=== PATIENT | female | born 1975 | race Caucasian/White ===

== ENCOUNTER 2018-12-03 18:11 | Inpatient (IN) | payer MEDICAID ==
[~2018-12-03] VITALS: Ht 165.1 cm; Wt 49.1 kg
[~2018-12-03 18:11] MED LIST changes: -CITA-145 PO; -CYCL10TA29 PO; -PROP60CA22 PO; -TRAZ100T31 PO
--- NOTE | 2018-12-03 18:20 | ER Report ---
History and Physical Time Seen By MD: 18:16 (CHANTE PAGE MD) HPI/ROS CHIEF COMPLAINT: left spontaneous pneumothorax HISTORY OF PRESENT ILLNESS: This is a 43 year old female. She was seen in the outpatient office today because of chest, neck and shoulder pain on the left. chest x-ray obtained as outpatient. Found to have a pneumothorax and was sent to the ER. She has a history of a small spontaneous pneumothorax in the past, treated conservatively with observing and it resolved. Onset of pain earlier today, sudden onset. Had some nausea and vomiting and coughing which may have triggered the pain. She smokes about 1/2 pack daily. No fever or chills. (CHANTE PAGE MD) Allergies: Coded Allergies: topiramate (Verified Allergy, Intermediate, L SIDE OF BODY GOES NUMB, 12/03/18) Sulfa (Sulfonamide Antibiotics) (Verified Allergy, Mild, RASH, 12/03/18) Home Meds Reported Medications Trazodone Hcl (TRAZODONE HCL) 100 Mg Tablet, 100 MG PO QHS, TAB 12/03/18 Citalopram Hydrobromide (CITALOPRAM HBR) 20 Mg Tablet, 40 MG PO QDAY, #5 TAB 12/03/18 Propranolol Hcl (PROPRANOLOL HCL) 60 Mg Cap.sa.24h, 60 MG PO QDAY 12/03/18 Cyclobenzaprine Hcl (CYCLOBENZAPRINE HCL) 10 Mg Tablet, 10 MG PO BID PRN for SPASMS, #9 TAB 12/03/18 Discontinued Reported Medications Oxycodone/Acetaminophen (OXYCODONE/ACETAMINOPHEN 5MG/325 MG) 5 Mg/325 Mg Tab, 1 - 2 TAB PO Q4H PRN, #20 TAKE ONE OR TWO PERCOCETS EVERY 4 HOURS NEEDED FOR PAIN 03/11/12 Ibuprofen (Motrin) 800 Mg Tab, 800 MG PO Q8H, #30 TAKE ONE MOTRIN 800MG THREE TIMES A DAY. 03/11/12 Reviewed Nurses Notes: Yes (CHANTE PAGE MD) Hx Substance Use Disorder: No Hx Alcohol Use: No (CHANTE PAGE MD) Constitutional Vital Sign - Last 24 Hours 12/03/18 18:20 Temp 97.8 Pulse 108 Resp 16 B/P (MAP) 142/109 Pulse Ox 93 O2 Delivery Room Air ([facility] K[facility]UR [facility]) Physical Exam General Appearance: The patient is alert. No acute distress, but is anxious/nervous. Eyes: Pupils are equal, round. No pallor, injection or icterus. ENT: Mucous membranes are moist. Normal oral mucosa. Posterior oropharynx is normal. Trachea midline. Respiratory: Lungs are clear to auscultation. She does have some pain with deep breaths. No retractions or accessory muscle use and no distress. Cardiovascular: Regular rate and rhythm. No murmurs, gallops or rubs. Gastrointestinal: Abdomen is soft and non tender. Nondistended. Normal active bowel sounds. No costovertebral angle tenderness with percussion. Neurological: Alert and oriented x3. Skin: Warm and dry. No skin lesions or rashes on chest wall. Musculoskeletal: Some tenderness of the left chest. No tenderness in palpation of the cervical, thoracic and lumbar spine. DIFFERENTIAL DIAGNOSIS: After history and physical exam, differential diagnosis was considered for spontaneous pneumothorax (CHANTE PAGE MD) Medical Decision Making Data Points Result Diagram: 12/03/184 12/03/18 1824 Laboratory Hematology Test 12/03/18 18:24 Red Blood Count 5.05 M/uL (4.17-5.56) Mean Corpuscular Volume 99.4 fL (80.0-96.0) Mean Corpuscular Hemoglobin 34.6 pg (26.0-33.0) Mean Corpuscular Hemoglobin Concent 34.8 g/dL (32.0-36.0) Red Cell Distribution Width 12.9 % (11.5-14.5) Mean Platelet Volume 8.5 fL (7.2-11.1) Neutrophils (%) (Auto) 70.5 % (39.4-72.5) Lymphocytes (%) (Auto) 20.7 % (17.6-49.6) Monocytes (%) (Auto) 6.6 % (4.1-12.4) Eosinophils (%) (Auto) 1.5 % (0.4-6.7) Basophils (%) (Auto) 0.7 % (0.3-1.4) Nucleated RBC Relative Count (auto) 0.1 /100WBC Neutrophils # (Auto) 9.5 K/uL (2.0-7.4) Lymphocytes # (Auto) 2.8 K/uL (1.3-3.6) Monocytes # (Auto) 0.9 K/uL (0.3-1.0) Eosinophils # (Auto) 0.2 K/uL (0.0-0.5) Basophils # (Auto) 0.1 K/uL (0.0-0.1) Nucleated RBC Absolute Count (auto) 0.02 K/uL Prothrombin Time 13.9 seconds (12.0-14.4) Prothromb Time International Ratio 1.06 Activated Partial Thromboplast Time 28 seconds (23-35) Sodium Level 136 mmol/L (137-145) Potassium Level 3.8 mmol/L (3.5-5.0) Chloride Level 104 mmol/L (98-107) Carbon Dioxide Level 24 mmol/L (22-31) Blood Urea Nitrogen 12 mg/dl (7-18) Creatinine 0.80 mg/dl (0.52-1.04) Glomerular Filtration Rate Calc > 60.0 Random Glucose 114 mg/dl (75-110) Calcium Level 9.7 mg/dl (8.4-10.2) Total Bilirubin 0.7 mg/dl (0.2-1.3) Aspartate Amino Transf (AST/SGOT) 20 U/L (0-35) Alanine Aminotransferase (ALT/SGPT) 14 U/L (0-56) Alkaline Phosphatase 66 U/L (0-126) Total Protein 8.5 g/dl (6.3-8.2) Albumin 4.5 g/dl (3.5-5.0) Human Chorionic Gonadotropin, Qual Negative (NEGATIVE) Chemistry Test 12/03/18 18:24 White Blood Count 13.4 k/uL (4.5-11.0) Red Blood Count 5.05 M/uL (4.17-5.56) Hemoglobin 17.5 g/dL (12.0-16.0) Hematocrit 50.2 % (34.0-47.0) Mean Corpuscular Volume 99.4 fL (80.0-96.0) Mean Corpuscular Hemoglobin 34.6 pg (26.0-33.0) Mean Corpuscular Hemoglobin Concent 34.8 g/dL (32.0-36.0) Red Cell Distribution Width 12.9 % (11.5-14.5) Platelet Count 230 K/uL (150-450) Mean Platelet Volume 8.5 fL (7.2-11.1) Neutrophils (%) (Auto) 70.5 % (39.4-72.5) Lymphocytes (%) (Auto) 20.7 % (17.6-49.6) Monocytes (%) (Auto) 6.6 % (4.1-12.4) Eosinophils (%) (Auto) 1.5 % (0.4-6.7) Basophils (%) (Auto) 0.7 % (0.3-1.4) Nucleated RBC Relative Count (auto) 0.1 /100WBC Neutrophils # (Auto) 9.5 K/uL (2.0-7.4) Lymphocytes # (Auto) 2.8 K/uL (1.3-3.6) Monocytes # (Auto) 0.9 K/uL (0.3-1.0) Eosinophils # (Auto) 0.2 K/uL (0.0-0.5) Basophils # (Auto) 0.1 K/uL (0.0-0.1) Nucleated RBC Absolute Count (auto) 0.02 K/uL Prothrombin Time 13.9 seconds (12.0-14.4) Prothromb Time International Ratio 1.06 Activated Partial Thromboplast Time 28 seconds (23-35) Glomerular Filtration Rate Calc > 60.0 Calcium Level 9.7 mg/dl (8.4-10.2) Total Bilirubin 0.7 mg/dl (0.2-1.3) Aspartate Amino Transf (AST/SGOT) 20 U/L (0-35) Alanine Aminotransferase (ALT/SGPT) 14 U/L (0-56) Alkaline Phosphatase 66 U/L (0-126) Total Protein 8.5 g/dl (6.3-8.2) Albumin 4.5 g/dl (3.5-5.0) Human Chorionic Gonadotropin, Qual Negative (NEGATIVE) Coagulation Test 12/03/18 18:24 Prothrombin Time 13.9 seconds Prothromb Time International Ratio 1.06 Activated Partial Thromboplast Time 28 seconds (EMMA KAURP-) EKG/Imaging Imaging Exam type: CHEST PA AND LAT History: Chest pain Comparison: August 18, 2015. Findings: There is an approximate 30-40% left-sided pneumothorax with a mild vdkc-ar-dfzro mediastinal shift. Small air-fluid level is noted along the inferior aspect of the left thorax consistent with a hydropneumothorax. There are multiple small blebs identified in the pulmonary apices bilaterally. Increased AP diameter the chest noted consistent with hyperinflation. The cardiac silhouette remains stable. IMPRESSION: 1. Approximate 30-40% left-sided pneumothorax with slight jwdk-gy-qvzjc mediastinal shift Biapical pleural blebs The patient was immediately notified on her cell phone to return to the emergency room. Report Dictated By: Emilia Arias MD at 12/03/2018 5:58 PM (CHANTE PAGE MD) ED Course/Re-evaluation ED Course Patient admitted and discussed regarding her pneumothorax, need for chest tube, as well as sedation for the procedure. Explained risks and benefits and the patient agreed to this. I also called and spoke briefly with our general surgeon, Dr. Mckeon. I assisted our nurse practitioner in the ER with chest tube placement. See procedure note below. Sedation with 50 g of fentanyl and a total of 100 mg of ketamine during the procedure. Also given Zofran for nausea and a liter of normal saline at a rate of one 25 cc per hour. Procedure: Procedural sedation. A pre-sedation evaluation was completed on the patient. Patient is an appropriate candidate for procedural sedation. The risks of the sedation were discussed with the patient. A time out was completed. The patient was reevaluated immediately prior to initiation of sedation. The patient was sedated with ketamine and fentanyl. The patient was monitored with continuous pulse oximetry and teletypesetter monitor. There were no complications and no significant hypoxemia. I remained at the bedside for the sedation. The total time I spent in the procedural sedation was 20 minutes. Post sedation evaluation: Patient was alert and cooperative, hemodynamically stable with appropriate respiratory status, temperature and pain control without ongoing nausea and vomiting. Decision to Disposition Date: Dec 03, 2018 Decision to Disposition Time: 20:11 (CHANTE PAGE MD) ED Course 12/03/2018 7:40:53 pm Procedure: Chest tube placement. The indication for the procedure was a pneumothorax. A timeout was observed. The patient was prepped in a sterile fashion. The patient was anesthetized with 1% lidocaine. After blunt dissection a 20 [place] chest tube was placed in the 5th intercostal space on the left side. The tube was sutured in place and dressed. Post placement chest x-ray demonstrated the tube to be in the appropriate position. Following placement of the tube the patient's condition was improved. The patient tolerated the procedure well there were no compli cations. The procedure was performed by myself with Dr. Page. (EMMA KAUR-ZOHRA) Depart Departure Latest Vital Signs Vital Signs Date Time Temp Pulse Resp B/P (MAP) Pulse Ox O2 Delivery O2 Flow Rate FiO2 12/03/18 18:20 97.8 108 16 142/109 93 Room Air (EMMA KAUR-ZHORA) Impression: Primary Impression: Spontaneous tension pneumothorax Additional Impression: Emphysematous bleb of lung Condition: Improved Disposition: Admitted from ER Referrals: HOLLY PALM PA-C (PCP) Problem Qualifiers CHANTE PAGE MD Dec 03, 2018 18:20 EMMA KAUR Dec 03, 2018 19:43
[2018-12-03] MEDS ORDERED: ONDANSETRON 4 MG/2 ML VIAL IVP ONE (18:25)
[2018-12-03] MEDS ORDERED: NS(*) 0.9% 1000 ML BAG 1,000 ML IV ONE (18:25)
[2018-12-03] MEDS ORDERED: fentaNYL CITR 100 MCG/2 ML AMP IVP ONE (18:25)
[2018-12-03] MEDS ORDERED: KETAMINE HCL-NS 50 MG/5 ML SYR IVP ONE (18:25)
[2018-12-03 18:43] LABS: INR 1.06; PLATELET COUNT, AUTOMATED 230 K/uL (150-450)
[2018-12-03] MEDS ORDERED: IOPAMIDOL 76% 100 ML INFUS BTL 100 ML ONE (18:43)
[2018-12-03] MEDS ORDERED: KETAMINE HCL-NS 50 MG/5 ML SYR ONE (19:02)
[2018-12-03] MEDS ORDERED: MORPHINE 4 MG/ML SDV IVP ONE (20:20)
--- NOTE | 2018-12-03 20:37 | RADIOLOGY IMAGING REPORT ---
FACILITY: [facility] PATIENT NAME: Leidy Momin : 1975 MR: [id number] V: [id number] EXAM DATE: ORDERING PHYSICIAN: CHANTE DOOLEY TECHNOLOGIST: Location: [facility] [place] Patient: Leidy Momin : 1975 Visit/Account:[id number] Date of Sevice: 12/03/2018 Examination: CT chest with contrast COMPARISON: Chest x-ray same day. HISTORY: Left pneumothorax. Chest tube placement. PROCEDURE: Multiplanar contrast-enhanced imaging of the chest with 75 mL intravenous Isovue 370. One of the following dose optimization techniques was utilized in the performance of this exam: Automated exposure control; adjustment of the mA and/or kV according to the patient's size; or use of an itera tive reconstruction technique. Specific details can be referenced in the facility's radiology CT ex am operational policy. FINDINGS: Mediastinum: Cardiac chamber size is normal. No pericardial effusion. No thoracic aortic aneurysm or dissection. Main pulmonary artery size is normal. Lymph nodes: Negative. Lungs and pleura: A left chest tube extends through the left lateral sixth costophrenic space, tracks along the left major fissure, and terminates at the left lung apex. Small (less than 10%) residual a nterior and subpulmonic pneumothorax. No mediastinal shift. Pulmonary hyperexpansion and apical predominant emphysema with numerous apical blebs. No consolidatio n. Scattered pulmonary micronodules measuring up to 5 mm. No right-sided pneumothorax. No pulmonary e kieran or pleural effusion. Airways: Negative. Diaphragm: Intact. Upper abdomen: No acute findings. Osseous structures: Minimal degenerative change. No acute findings. IMPRESSION: 1. Left chest tube placement with a less than 10% residual pneumothorax. 2. Pulmonary hyperexpansion, emphysema, and biapical blebs. 3. Pulmonary micronodules measuring up to 5 mm. Follow-up as detailed below. Results were discussed with CHANTE DOOLEY at 12/03/2018 8:32 PM. [employer] SOCIET[employer] FOLLOW-UP GUIDELINES FOR NEWLY DETECTED INCIDENTAL NODULES IN PERSONS 35 YEARS OF AGE OR OLDER. *These recommendations do NOT apply to lung cancer screening, patients with immunosuppression or edith ents with a known primary malignancy. MULTIPLE SOLID NODULES If nodule size is < 6 mm: * Low risk patient - No routine follow-up. * High risk patient - Optional CT at 12 months. Jhon H, Omari DP, Maryann HANKINS, et al. Guidelines for Management of Incidental Pulmonary Nodules Dete cted on CT Images: From the Fleischner Society 2017. Radiology. [facility] Report Dictated By: Alfredito Mccall MD at 12/03/2018 8:21 PM Report E-Signed By: Alfredito Mccall MD at 12/03/2018 8:33 PM WSN:[id number]
[2018-12-03 21:18] VITALS: BP 129/85
[2018-12-03] MEDS ORDERED: ONDANSETRON 4 MG ODT TABDP SL PRN (21:35)
[2018-12-03] MEDS ORDERED: CITA-145 PO (21:46)
[2018-12-03] MEDS ORDERED: PROP60CA22 PO (21:46)
[2018-12-03] MEDS ORDERED: TRAZ100T31 PO (21:46)
[2018-12-03] MEDS ORDERED: CYCL10TA29 PO (21:46)
[2018-12-03] MEDS ORDERED: FLUSH 10 ML SYR IVP PRN (22:45)
[2018-12-04 03:43] VITALS: BP 113/82
[2018-12-04 06:56] VITALS: BP 116/68
--- NOTE | 2018-12-04 07:02 | RADIOLOGY IMAGING REPORT ---
FACILITY: [facility] - [place] PATIENT NAME: Leidy Momin : 1975 MR: [id number] V: [id number] EXAM DATE: ORDERING PHYSICIAN: YAQUELIN TAFOYA TECHNOLOGIST: Location: [facility] [place] Patient: Leidy Momin : 1975 Visit/Account:[id number] Date of Sevice: 12/04/2018 EXAMINATION: Chest radiograph HISTORY: Chest tube COMPARISON: December 03, 2018 FINDINGS: Frontal view obtained. Lines/tubes: New left chest tube. Cardiomediastinal silhouette: Normal. Lungs/pleura: No apparent residual pneumothorax. Unchanged biapical pleural-parenchymal scarring. Ot herwise clear lungs. Bony structures/chest wall: No significant abnormality. IMPRESSION: New left chest tube compared to prior chest radiograph. No radiographic apparent left pneumothorax. Unchanged biapical pleural-parenchymal scarring. Report Dictated By: Derrick Castellon MD at 12/04/2018 6:55 AM Report E-Signed By: Derrick Castellon MD at 12/04/2018 6:58 AM WSN:[id number]
[2018-12-04] MEDS ORDERED: FLUSH 10 ML SYR IVP PRN (07:50)
--- NOTE | 2018-12-04 09:34 | Gen Surgery History & Physical ---
History of Present Illness Chief Complaint Left shoulder pain, shortness of breath History of Present Illness 43-year-old female, long-term smoker, presents to her PCM at [facility], she saw Dr. Lee, with a complaint of left shoulder pain and a migraine with posterior neck pain. He obtained a PA lateral chest x-ray which re vealed a pneumothorax. Because of her migraine she had been experiencing nausea and vomiting. She has smoked since she was 18 and for most of that time she smoked a pack per day but most recently she's been trying to cut back and believe she smokes about a half a pack per day currently. She had a spontaneous pneumothorax about 3 years ago which was managed with the chest tube and then resolved with conservative management. She has no other complaints today. History Problems: (1) Chronic bullous emphysema Status: Chronic (2) Depression Status: Chronic (3) Cigarette smoker Status: Chronic (4) Migraine Status: Chronic Home Meds Reported Medications Trazodone Hcl (TRAZODONE HCL) 100 Mg Tablet, 100 MG PO QHS, TAB 12/03/18 Citalopram Hydrobromide (CITALOPRAM HBR) 20 Mg Tablet, 40 MG PO QDAY, #5 TAB 12/03/18 Propranolol Hcl (PROPRANOLOL HCL) 60 Mg Cap.sa.24h, 60 MG PO QDAY 12/03/18 Cyclobenzaprine Hcl (CYCLOBENZAPRINE HCL) 10 Mg Tablet, 10 MG PO BID PRN for SPASMS, #9 TAB 12/03/18 Discontinued Reported Medications Oxycodone/Acetaminophen (OXYCODONE/ACETAMINOPHEN 5MG/325 MG) 5 Mg/325 Mg Tab, 1 - 2 TAB PO Q4H PRN, #20 TAKE ONE OR TWO PERCOCETS EVERY 4 HOURS NEEDED FOR PAIN 03/11/12 Ibuprofen (Motrin) 800 Mg Tab, 800 MG PO Q8H, #30 TAKE ONE MOTRIN 800MG THREE TIMES A DAY. 03/11/12 Allergies: Coded Allergies: topiramate (Verified Allergy, Intermediate, L SIDE OF BODY GOES NUMB, 12/03/18) Sulfa (Sulfonamide Antibiotics) (Verified Allergy, Mild, RASH, 12/03/18) Review of Systems All Systems Reviewed/Normal: Yes, Except as Noted Respiratory: Shortness of Breath Musculoskeletal: Pain Exam General Appearance: Alert, Awake, No Acute Distress, Afebrile Neuro: No Gross deficits Eyes: PERRLA Respiratory: Clear to Auscultation, Other (Left chest tube in place and in good position. No air leak. Tidaling normally.) GI: Abd Soft and Non-Tender Extremities: Warm, Perfused Psych: Alert & Oriented X3, Appropriate Mood & Affect Medical Decision Making Data Points Result Diagram: 12/03/18182312/03/181823 Assessment and Plan Problems: (1) Spontaneous tension pneumothorax Status: Acute Assessment & Plan: 12/04/18: Chest tube placed last night in the ER with nearly complete resolution of the pneumothorax and on this morning's chest x-ray, there is no evidence of pneumothorax and there is no air leak on the Pleur-evac. She has essentially been on waterseal all night because suction was turned on but very low such that the Pleur-evac was not even bubbling. Chest tube removed this morning without problems and an airtight dressing placed. We'll get a chest x- ray this afternoon and if it looks good then she can go home. Discussed smoking cessation with her and she is willing to make an attempt at smoking cessation. Consult placed for smoking cessation and then she should follow up with her primary care provider for continued efforts at smoking cessation. She is at high risk for another pneumothorax given the appearance of her bullae on chest CT. There is not just apical bullae but there are bullae throughout the upper long alberto. These results of been discussed with her and it seems that because of this she is motivated to try and stop smoking. (2) Emphysematous bleb of lung Status: Acute (3) Chronic bullous emphysema Status: Chronic (4) Cigarette smoker Status: Chronic Condition Stable. Time Spent: < 30 min Venous Thromboembolism VTE Risk Physician Assess for VTE Risk: Yes Patient's VTE Risk: Low VTE Diagnostic Test 2 Days Prior to Admit: No Antithrombotics Is Pt On Any Antithrombotics?: No YAQUELIN TAFOYA MD Dec 04, 2018 09:34
[2018-12-04] MEDS: FAMOTIDINE 20 MG TAB PO SCH ×2 (09:40→20:22)
[2018-12-04] MEDS: PROPRANOLOL HCL LA 60 MG CAPCR PO SCH (09:40)
[2018-12-04] MEDS: DOCUSATE SODIUM 100 MG CAP PO SCH ×2 (09:41→20:22)
[2018-12-04] MEDS: ENOXAPARIN 40 MG/0.4ML SYR SC SCH (09:41)
[2018-12-04] MEDS: CITALOPRAM HYDROBROM 20 MG TAB PO SCH (09:41)
[2018-12-04 11:46] VITALS: BP 125/80
[2018-12-04 12:14] VITALS: Ht 165.1 cm; Wt 49.1 kg
--- NOTE | 2018-12-04 13:48 | RADIOLOGY IMAGING REPORT ---
FACILITY: [facility] PATIENT NAME: Leidy Momin : 1975 MR: [id number] V: [id number] EXAM DATE: ORDERING PHYSICIAN: YAQUELIN TAFOYA TECHNOLOGIST: Location: [facility] Patient: Leidy Momin : 1975 Visit/Account:[id number] Date of Sevice: 12/04/2018 CHEST SINGLE AP History: Left PTX, chest tube removed FINDINGS: Comparison studies: Comparison radiograph earlier today at 6:33 AM Tubes and Lines: Interval removal of left chest tube Lungs and pleura: Interval development of a moderate left pneumothorax. Visceral pleura is 2.5 cm from the parietal wall lung apex. Lungs appear hyperinflated. Mediastinum: normal. Cardiac silhouette: normal . Osseous structures: Unremarkable for age . IMPRESSION: Developing left pneumothorax status post left chest tube removal. I would estimate approximately 3 0% volume loss. Probable underlying COPD Results were called to YAQUELIN TAFOYA at 12/04/2018 1:35 PM. Report Dictated By: Lc Jimenez MD at 12/04/2018 1:35 PM Report E-Signed By: Lc Jimenez MD at 12/04/2018 1:43 PM WSN:[email or web address]
[2018-12-04 15:27] VITALS: BP 134/96
--- NOTE | 2018-12-04 17:46 | Procedure Note ---
Chest Tube Procedure Note Reason for Chest Tube PTX Consent Signed: Yes Chest Tube Location: Left Lung Complications: None Anesthesia Used: 1% Lidocaine CC's of Anesthesia: 5 Chest Tube Size Fr.: 14 Chest Tube Suction: Pleura-Vac Chest Tube Secured: Occlusive Dressing Post Procedure Xray Ordered: Yes YAQUELIN TAFOYA MD Dec 04, 2018 17:46
--- NOTE | 2018-12-04 17:47 | Miscellaneous Provider Note ---
Miscellaneous Provider Note Note Post pull CXR with recurrent 30% PTX. Discussed results with patient and recommended placement of a new chest tube. Pt is agreeable with this. Will place 14F Victor [place] PTX catheter at bedside. YAQUELIN TAFOYA MD Dec 04, 2018 17:47
[2018-12-04] MEDS: MORPHINE 4 MG/ML SDV IVP PRN (17:54)
[2018-12-04 19:41] VITALS: BP 112/70
[2018-12-04] MEDS: traZODone HCL 50 MG TAB PO SCH (20:22)
--- NOTE | 2018-12-04 21:25 | RADIOLOGY IMAGING REPORT ---
FACILITY: [facility] - [place] PATIENT NAME: Leidy Momin : 1975 MR: [id number] V: [id number] EXAM DATE: ORDERING PHYSICIAN: YAQUELIN TAFOYA TECHNOLOGIST: Location: [facility] Patient: Leidy Momin : 1975 Visit/Account:[id number] Date of Sevice: 12/04/2018 Portable chest: Indication: Left pneumothorax. Technique: A single frontal film was obtained. Comparison: A prior study from earlier the same day at 1250 hours. Lines and tubes: A percutaneous catheter is now present in the left pleural space. Skeletal and soft tissue structures: Intact and unchanged. Heart and mediastinum: Within normal limits. Lung alberto: Well-expanded. No focal parenchymal opacities. Pleural spaces: There is minimal residual pneumothorax at the left apex. There is no evidence of effu mary. Impression: Left pleural space catheter in place. Minimal residual left apical pneumothorax. Report Dictated By: Yonny Vergara MD at 12/04/2018 9:17 PM Report E-Signed By: Yonny Vergara MD at 12/04/2018 9:20 PM WSN:[id number]
--- NOTE | 2018-12-05 06:09 | RADIOLOGY IMAGING REPORT ---
FACILITY: [facility] PATIENT NAME: Leidy Momin : 1975 MR: [id number] V: [id number] EXAM DATE: ORDERING PHYSICIAN: YAQUELIN TAFOYA TECHNOLOGIST: Location[place] [facility] [place] Patient: Leidy Momin : 1975 Visit/Account:[id number] Date of Sevice: 12/05/2018 EXAMINATION: Chest radiograph HISTORY: Recurrent left pneumothorax COMPARISON: December 04, 2018 FINDINGS: The cardiac silhouette is normal in size. Unchanged left pleural catheter. Trace left apical pneumoth orax is unchanged. Biapical pleural-parenchymal scarring as before. Otherwise clear lungs. No osseous abnormality. IMPRESSION: Trace unchanged left apical pneumothorax. Unchanged left pleural catheter. Report Dictated By: Derrick Castellon MD at 12/05/2018 6:03 AM Report E-Signed By: Derrick Castellon MD at 12/05/2018 6:05 AM WSN:[id number]
[2018-12-05 07:04] VITALS: BP 107/91
--- NOTE | 2018-12-05 07:31 | General Surgery Progress Note ---
Subjective Progress Notes Subjective No complaints this morning. No pain. Physical Exam Vital Signs Date Time Temp Pulse Resp B/P (MAP) Pulse Ox O2 Delivery O2 Flow Rate FiO2 12/05/18 07:04 98.1 71 16 107/91 (96) 90 Nasal Cannula 0.5 12/03/18 21:49 93.0 Intake and Output 12/05/18 07:00 Intake Total 480 ml Output Total 255 ml Balance 225 ml Intake Oral 480 ml Output Urine Total 250 ml Chest Tube Drainage Total 5 ml # Voids 2 General Appearance: Alert, Awake, No Acute Distress, Afebrile Cardiovascular: Regular Rate and Rhythm Respiratory: Clear to Auscultation GI: Soft and Non-Tender Extremities: Warm, Perfused Result Diagram: 12/03/18182312/03/181823 Assessment and Plan Problems: (1) Spontaneous tension pneumothorax Status: Acute Assessment & Plan: 12/04/18: Chest tube placed last night in the ER with nearly complete resolution of the pneumothorax and on this morning's chest x-ray, there is no evidence of pneumothorax and there is no air leak on the Pleur-evac. She has essentially been on waterseal all night because suction was turned on but very low such that the Pleur-evac was not even bubbling. Chest tube removed this morning without problems and an airtight dressing placed. We'll get a chest x- ray this afternoon and if it looks good then she can go home. Discussed smoking cessation with her and she is willing to make an attempt at smoking cessation. Consult placed for smoking cessation and then she should follow up with her primary care provider for continued efforts at smoking cessation. She is at high risk for another pneumothorax given the appearance of her bullae on chest CT. There is not just apical bullae but there are bullae throughout the upper long alberto. These results of been discussed with her and it seems that because of this she is motivated to try and stop smoking. 12/05/18: Failed chest tube removal yesterday with reaccumulation of left PTX. Victor Hugo PTX catheter placed yesterday evening with near total resolution of PTX. No air leak this morning. Will connect catheter to heimlich valve and check CXR later today. If she does well with this then will clamp chest tube later today and will get another CXR with the tube clamped. (2) Emphysematous bleb of lung Status: Chronic (3) Chronic bullous emphysema Status: Chronic (4) Cigarette smoker Status: Chronic Condition Stable. Time Spent: < 30 min Exam Sepsis Risk: No Definite Risk YAQUELIN TAFOYA MD Dec 05, 2018 07:31
--- NOTE | 2018-12-05 07:36 | NUR ---
removed suction and placed flutter valve to site. Addendum: 12/05/18 at 0737 by CRISS PERALTA RN Amended: Links added. Addendum: 12/05/18 at 0739 by CRISS PERALTA RN chest tube to heimlich valve. to recheck q2 hours for securement.
[2018-12-05] MEDS: ENOXAPARIN 40 MG/0.4ML SYR SC SCH (09:05)
[2018-12-05] MEDS: FAMOTIDINE 20 MG TAB PO SCH ×2 (09:05→20:38)
[2018-12-05] MEDS: CITALOPRAM HYDROBROM 20 MG TAB PO SCH (09:06)
[2018-12-05] MEDS: PROPRANOLOL HCL LA 60 MG CAPCR PO SCH (09:06)
[2018-12-05] MEDS: DOCUSATE SODIUM 100 MG CAP PO SCH ×2 (09:06→20:39)
[2018-12-05 09:07] VITALS: BP 122/79
[2018-12-05] MEDS ORDERED: KETAMINE HCL-NS 50 MG/5 ML SYR IVP ONE (10:40)
[2018-12-05 11:17] VITALS: BP 94/71
--- NOTE | 2018-12-05 11:39 | RADIOLOGY IMAGING REPORT ---
FACILITY: [facility] PATIENT NAME: Leidy Momin : 1975 MR: [id number] V: [id number] EXAM DATE: ORDERING PHYSICIAN: YAQUELIN TAFOYA TECHNOLOGIST: Location: [facility] Patient: Leidy Momin : 1975 Visit/Account:[id number] Date of Sevice: 12/05/2018 Exam type: CHEST SINGLE AP History: Left PTX, tube connected to heimlich valve Comparison: December 05, 2018 at 5:45 AM. Findings: The left pleural catheter remains unchanged and projects over the lateral aspect left upper thorax. There is been a minimal increase in the tiny left apical pneumothorax with distance between the left apical pleural margin in the upper chest wall of 7 mm previously 4 mm. Biapical pleural blebs again seen. No evidence of pulmonary consolidation or mediastinal shift. The cardiac silhouette remains n ormal IMPRESSION: 1. Left pleural catheter remains unchanged Minimal increase in the tiny left apical pneumothorax with no mediastinal shift Biapical pleural blebs again seen Report Dictated By: Emilia Arias MD at 12/05/2018 11:33 AM Report E-Signed By: Emilia Arias MD at 12/05/2018 11:35 AM WSN:[email or web address]
--- NOTE | 2018-12-05 12:47 | NUR ---
chest tube was clamped by will monitor for s/s of respiratory distress. Addendum: 12/05/18 at 1248 by CRISS PERALTA RN Amended: Links added.
[2018-12-05 16:02] VITALS: BP 115/71
--- NOTE | 2018-12-05 17:00 | NUR ---
unclamped chest tube, connected to suction to reinflate lung, and replaced with valve. pt will continue with open valve through night. Addendum: 12/05/18 at 1734 by CRISS PERALTA RN Amended: Links added.
--- NOTE | 2018-12-05 17:01 | RADIOLOGY IMAGING REPORT ---
FACILITY: [facility] PATIENT NAME: Leidy Momin : 1975 MR: [id number] V: [id number] EXAM DATE: ORDERING PHYSICIAN: YAQUELIN TAFOYA TECHNOLOGIST: Location: [facility] Patient: Leidy Momin : 1975 Visit/Account:[id number] Date of Sevice: 12/05/2018 Technique: CHEST SINGLE AP HISTORY: Left PTX, chest drain clamped Comparison studies: Chest radiograph 12/05/2018 FINDINGS: There is a left-sided chest tube. Noted is a moderate to large left-sided pneumothorax. A pical pleural thickening is again noted within the right lung. The cardiac silhouette is on remarkab le. IMPRESSION: 1. Interval worsening of the left-sided pneumothorax now measuring moderate to large in size status post chest tube clamping. Results were called to Dr. YAQUELIN TAFOYA at 12/05/2018 4:55 PM. Report Dictated By: Valeriano Goff DO at 12/05/2018 4:49 PM Report E-Signed By: Valeriano Goff DO at 12/05/2018 4:55 PM WSN:[id number]
[2018-12-05] MEDS: traZODone HCL 50 MG TAB PO SCH (20:39)
[2018-12-05 20:50] VITALS: BP 125/85
[2018-12-06] VITALS (7 sets, daily range): BP systolic 114–141; BP diastolic 66–93
--- NOTE | 2018-12-06 06:45 | RADIOLOGY IMAGING REPORT ---
FACILITY: [facility] [place] PATIENT NAME: Leidy Momin : 1975 MR: [id number] V: [id number] EXAM DATE: ORDERING PHYSICIAN: YAQUELIN TAFOYA TECHNOLOGIST: Location: [facility] Patient: Leidy Momin : 1975 Visit/Account:[id number] Date of Sevice: 12/06/2018 EXAMINATION: Chest radiograph HISTORY: Left pneumothorax COMPARISON: December 05, 2018 FINDINGS: Unchanged left pleural catheter. Small left upper chest pneumothorax is present and has dec reased in size. Unchanged biapical scarring. No acute osseous abnormality. IMPRESSION: Small left pneumothorax has decreased in size. Unchanged left pleural catheter. Report Dictated By: Derrick Castellon MD at 12/06/2018 6:39 AM Report E-Signed By: Derrick Castellon MD at 12/06/2018 6:41 AM WSN:[id number]
--- NOTE | 2018-12-06 07:40 | NUR ---
clamped chest tube. valve in place. will monitor for s/s respiratory distress. Addendum: 12/06/18 at 0804 by CRISS PERALTA RN Amended: Links added.
--- NOTE | 2018-12-06 07:46 | General Surgery Progress Note ---
Subjective Progress Notes Subjective No complaints this morning. Physical Exam Vital Signs Date Time Temp Pulse Resp B/P (MAP) Pulse Ox O2 Delivery O2 Flow Rate FiO2 12/06/18 03:44 Nasal Cannula 0.5 12/06/18 01:40 68 16 96 12/05/18 20:50 98.4 12/03/18 21:49 93.0 Intake and Output 12/06/18 07:00 Intake Total 960 ml Output Total 6 ml Balance 954 ml Intake Oral 960 ml Chest Tube Drainage Total 6 ml # Voids 4 General Appearance: Alert, Awake, No Acute Distress, Afebrile Cardiovascular: Regular Rate and Rhythm Respiratory: Clear to Auscultation Extremities: Warm, Perfused Result Diagram: 12/03/18182312/03/181823 Assessment and Plan Problems: (1) Spontaneous tension pneumothorax Status: Acute Assessment & Plan: 12/04/18: Chest tube placed last night in the ER with nearly complete resolution of the pneumothorax and on this morning's chest x-ray, there is no evidence of pneumothorax and there is no air leak on the Pleur-evac. She has essentially been on waterseal all night because suction was turned on but very low such that the Pleur-evac was not even bubbling. Chest tube removed this morning without problems and an airtight dressing placed. We'll get a chest x- ray this afternoon and if it looks good then she can go home. Discussed smoking cessation with her and she is willing to make an attempt at smoking cessation. Consult placed for smoking cessation and then she should follow up with her primary care provider for continued efforts at smoking cessation. She is at high risk for another pneumothorax given the appearance of her bullae on chest CT. There is not just apical bullae but there are bullae throughout the upper long alberto. These results of been discussed with her and it seems that because of this she is motivated to try and stop smoking. 12/05/18: Failed chest tube removal yesterday with reaccumulation of left PTX. Victor Hugo PTX catheter placed yesterday evening with near total resolution of PTX. No air leak this morning. Will connect catheter to heimlich valve and check CXR later today. If she does well with this then will clamp chest tube later today and will get another CXR with the tube clamped. 12/06/18: Clamped chest drain yesterday and PTX recurred, reopened to Heimlich valve and CXR looks good this morning. Will try clamping chest drain again this morning and recheck CXR at noon. Pt o/w doing very well. (2) Emphysematous bleb of lung Status: Chronic (3) Chronic bullous emphysema Status: Chronic (4) Cigarette smoker Status: Chronic Condition Stable. Time Spent: < 30 min Exam Sepsis Risk: No Definite Risk YAQUELIN TAFOYA MD Dec 06, 2018 07:46
[2018-12-06] MEDS: CITALOPRAM HYDROBROM 20 MG TAB PO SCH (09:09)
[2018-12-06] MEDS: PROPRANOLOL HCL LA 60 MG CAPCR PO SCH (09:09)
[2018-12-06] MEDS: ENOXAPARIN 40 MG/0.4ML SYR SC SCH (09:09)
[2018-12-06] MEDS: FAMOTIDINE 20 MG TAB PO SCH ×2 (09:09→21:42)
[2018-12-06] MEDS: DOCUSATE SODIUM 100 MG CAP PO SCH ×2 (09:10→21:42)
--- NOTE | 2018-12-06 13:20 | NUR ---
attached suction to chest tube to reinflate lung. tubing was then reattached to heimlich valve with clamp open. Addendum: 12/06/18 at 1419 by CRISS PERALTA RN Amended: Links added.
--- NOTE | 2018-12-06 14:07 | RADIOLOGY IMAGING REPORT ---
FACILITY: [facility] - [place] PATIENT NAME: Leidy Momin : 1975 MR: [id number] V: [id number] EXAM DATE: ORDERING PHYSICIAN: YAQUELIN TAFOYA TECHNOLOGIST: Location: [facility] [place] Patient: Leidy Momin : 1975 Visit/Account:[id number] Date of Sevice: 12/06/2018 Exam type: CHEST SINGLE AP History: Left PTX, chest drain clamped Comparison: December 06, 2018 at 6:12 AM . Findings: Left pleural catheter again seen. There has been an increase in the left-sided pneumothorax now harsha ures approximately 10-15%. The distance between the left apical pleural margin in the apical thoraci c wall is approximately 2.5 cm previously 1.9 cm. The pneumothorax now extends along the lateral asp ect of the mid to upper left thorax as well. Biapical pleural blebs again seen. Cardiac silhouette is normal in size IMPRESSION: 1. Left pleural catheter remains unchanged Increase in the left pneumothorax now measuring approximately 10-15% as described above Report Dictated By: Emilia Arias MD at 12/06/2018 1:58 PM Report E-Signed By: Emilia Arias MD at 12/06/2018 2:02 PM WSN:[email or web address]
--- NOTE | 2018-12-06 17:36 | RADIOLOGY IMAGING REPORT ---
[place] [facility] [place] NAME: Leidy Momin : 1975 MR: [id number] V: [id number] EXAM DATE: ORDERING PHYSICIAN: YAQUELIN TAFOYA TECHNOLOGIST: Location: [facility] Patient: Leidy Momin : 1975 Visit/Account:[id number] Date of Sevice: 12/06/2018 Exam type: CHEST SINGLE AP History: Left PTX Comparison: December 06, 2018 at 11:55 AM. Findings: The left pleural catheter is again noted. There has been interval reduction of the left-sided pneumo thorax which now appears minimal. The distance between the left apical pleura in the apical left [address] wall is 4.6 mm. Biapical pleural blebs again seen cardiac silhouette is normal in size IMPRESSION: 1. There is been interval reduction of the left apical pneumothorax which now appears minimal Report Dictated By: Emilia Arias MD at 12/06/2018 5:29 PM Report E-Signed By: Emilia Arias MD at 12/06/2018 5:30 PM WSN:[email or web address]
[2018-12-06] MEDS: traZODone HCL 50 MG TAB PO SCH (21:42)
--- NOTE | 2018-12-07 06:03 | RADIOLOGY IMAGING REPORT ---
[place] [facility] [place] Leidy Momin : 1975 MR: [id number] V: [id number] EXAM DATE: ORDERING PHYSICIAN: YAQUELIN TAFOYA TECHNOLOGIST: Location: [facility] Patient: Leidy Momin : 1975 Visit/Account:[id number] Date of Sevice: 12/07/2018 Portable chest: Indication: Follow-up evaluation of pneumothorax. Technique: A single frontal film was obtained. Comparison: 12/06/2018 Lines and tubes: The left pleural space catheter remains in satisfactory position. Skeletal and soft tissue structures: Intact and unchanged. Heart and mediastinum: Within normal limits. Lung alberto: Well-expanded. No focal parenchymal consolidation. Pleural spaces: Persistent small left apical pneumothorax, without significant change. No evidence of effusion. Impression: Persistent small left apical pneumothorax. Report Dictated By: Yonny Vergara MD at 12/07/2018 5:55 AM Report E-Signed By: Yonny Vergara MD at 12/07/2018 5:57 AM WSN:[id number]
[2018-12-07 07:27] VITALS: BP 115/71
--- NOTE | 2018-12-07 08:08 | General Surgery Progress Note ---
Subjective Progress Notes Subjective No complaints this morning. Physical Exam Vital Signs Date Time Temp Pulse Resp B/P (MAP) Pulse Ox O2 Delivery O2 Flow Rate FiO2 12/07/18 07:31 94 Room Air 12/07/18 07:27 98.1 64 14 115/71 (86) 12/06/18 09:10 0.5 12/03/18 21:49 93.0 Intake and Output 12/07/18 07:00 Intake Total 782 ml Balance 782 ml Intake Oral 782 ml # Voids 4 # Bowel Movements 1 General Appearance: Alert, Awake, No Acute Distress, Afebrile Cardiovascular: Regular Rate and Rhythm Respiratory: Clear to Auscultation, Other (Chest tube site looks good.) Extremities: Warm, Perfused Result Diagram: 12/03/18182312/03/181823 Assessment and Plan Problems: (1) Spontaneous tension pneumothorax Status: Acute Assessment & Plan: 12/04/18: Chest tube placed last night in the ER with nearly complete resolution of the pneumothorax and on this morning's chest x-ray, there is no evidence of pneumothorax and there is no air leak on the Pleur-evac. She h as essentially been on waterseal all night because suction was turned on but very low such that the Pleur-evac was not even bubbling. Chest tube removed this morning without problems and an airtight dressing placed. We'll get a chest x- ray this afternoon and if it looks good then she can go home. Discussed smoking cessation with her and she is willing to make an attempt at smoking cessation. Consult placed for smoking cessation and then she should follow up with her primary care provider for continued efforts at smoking cessation. She is at high risk for another pneumothorax given the appearance of her bullae on chest CT. There is not just apical bullae but there are bullae throughout the upper long alberto. These results of been discussed with her and it seems that because of this she is motivated to try and stop smoking. 12/05/18: Failed chest tube removal yesterday with reaccumulation of left PTX. Victor Hugo PTX catheter placed yesterday evening with near total resolution of PTX. No air leak this morning. Will connect catheter to heimlich valve and check CXR later today. If she does well with this then will clamp chest tube later today and will get another CXR with the tube clamped. 12/06/18: Clamped chest drain yesterday and PTX recurred, reopened to Heimlich valve and CXR looks good this morning. Will try clamping chest drain again this morning and recheck CXR at noon. Pt o/w doing very well. 12/07/18: Failed clamp trial again so chest drain reopened to heimlich valve. Will try clamp trial again today and chest CXR at noon. If fails then may need to consider VATS with blebectomy and pleurodesis tomorrow or next day. (2) Emphysematous bleb of lung Status: Chronic (3) Chronic bullous emphysema Status: Chronic (4) Cigarette smoker Status: Chronic Condition Stable. Time Spent: < 30 min Exam Sepsis Risk: No Definite Risk YAQUELIN TAFOYA MD Dec 07, 2018 08:08
[2018-12-07] MEDS: FAMOTIDINE 20 MG TAB PO SCH ×2 (08:53→20:44)
[2018-12-07] MEDS: PROPRANOLOL HCL LA 60 MG CAPCR PO SCH (08:53)
[2018-12-07] MEDS: CITALOPRAM HYDROBROM 20 MG TAB PO SCH (08:53)
[2018-12-07] MEDS: DOCUSATE SODIUM 100 MG CAP PO SCH ×2 (08:54→20:45)
[2018-12-07] MEDS: ENOXAPARIN 40 MG/0.4ML SYR SC SCH (08:54)
[2018-12-07 11:34] VITALS: BP 120/86
--- NOTE | 2018-12-07 12:57 | RADIOLOGY IMAGING REPORT ---
FACILITY: [facility] - [place] PATIENT NAME: Leidy Momin : 1975 MR: [id number] V: [id number] EXAM DATE: ORDERING PHYSICIAN: YAQUELIN TAFOYA TECHNOLOGIST: Location: [facility] Patient: Leidy Momin : 1975 Visit/Account:[id number] Date of Sevice: 12/07/2018 Exam type: CHEST SINGLE AP History: Left PTX Comparison: December 07, 2018 at 5:32 AM. Findings: Left pleural catheter remains unchanged. Again noted is the tiny left apical pneumothorax which is r elatively unchanged. Biapical pleural blebs again seen. The cardiac silhouette is normal in size. IMPRESSION: 1. Tiny left apical pneumothorax remains unchanged Left pleural catheter again noted Biapical pleural blebs Report Dictated By: Emilia Arias MD at 12/07/2018 12:45 PM Report E-Signed By: Emilia Arias MD at 12/07/2018 12:46 PM WSN:[email or web address]
[2018-12-07 14:34] VITALS: BP 136/84
[2018-12-07 19:26] VITALS: BP 133/74
[2018-12-07] MEDS: traZODone HCL 50 MG TAB PO SCH (20:44)
[2018-12-07 22:59] VITALS: BP 106/71
[2018-12-08] VITALS (7 sets, daily range): BP systolic 102–124; BP diastolic 52–81
--- NOTE | 2018-12-08 07:21 | General Surgery Progress Note ---
Subjective Progress Notes Subjective No complaints this morning. Physical Exam Vital Signs Date Time Temp Pulse Resp B/P (MAP) Pulse Ox O2 Delivery O2 Flow Rate FiO2 12/08/18 07:16 98.2 83 14 110/71 (84) 94 Room Air 12/07/18 11:34 0.5 Intake and Output 12/08/18 07:00 Intake Total 1380 ml Balance 1380 ml Intake Oral 1380 ml # Voids 2 # Bowel Movements 1 General Appearance: Alert, Awake, No Acute Distress, Afebrile Cardiovascular: Regular Rate and Rhythm Respiratory: Clear to Auscultation Extremities: Warm, Perfused Assessment and Plan Problems: (1) Spontaneous tension pneumothorax Status: Acute Assessment & Plan: 12/04/18: Chest tube placed last night in the ER with nearly complete resolution of the pneumothorax and on this morning's chest x-ray, there is no evidence of pneumothorax and there is no air leak on the Pleur-evac. She has essentially been on waterseal all night because suction was turned on but very low such that the Pleur-evac was not even bubbling. Chest tube removed this morning without problems and an airtight dressing placed. We'll get a chest x-ray this afternoon and if it looks good then she can go home. Discussed smoking cessation with her and she is willing to make an attempt at smoking cessation. Consult placed for smoking cessation and then she should follow up with her primary care provider for continued efforts at smoking cessation. She is at high risk for another pneumothorax given the appearance of her bullae on chest CT. There is not just apical bullae but there are bullae throughout the upper long alberto. These results of been discussed with her and it seems that because of this she is motivated to try and stop smoking. 12/05/18: Failed chest tube removal yesterday with reaccumulation of left PTX. Victor Hugo PTX catheter placed yesterday evening with near total resolution of PTX. No air leak this morning. Will connect catheter to heimlich valve and check CXR later today. If she does well with this then will clamp chest tube later today and will get another CXR with the tube clamped. 12/06/18: Clamped chest drain yesterday and PTX recurred, reopened to Heimlich valve and CXR looks good this morning. Will try clamping chest drain again this morning and recheck CXR at noon. Pt o/w doing very well. 1/18/19: Failed clamp trial again so chest drain reopened to heimlich valve. Will try clamp trial again today and chest CXR at noon. If fails then may need to consider VATS with blebectomy and pleurodesis tomorrow or next day. 12/08/18: Tolerated clamp trial yesterday without out increase in PTX last evening. PTX a little bigger this morning. Will keep tube clamped and check the CXR at noon. If improving then will pull chest drain later today. (2) Emphysematous bleb of lung Status: Chronic (3) Chronic bullous emphysema Status: Chronic (4) Cigarette smoker Status: Chronic Condition Stable. Time Spent: < 30 min Exam Sepsis Risk: No Definite Risk YAQUELIN TAFOYA MD Dec 08, 2018 07:21
[2018-12-08] MEDS: ENOXAPARIN 40 MG/0.4ML SYR SC SCH (08:22)
[2018-12-08] MEDS: FAMOTIDINE 20 MG TAB PO SCH ×2 (08:23→20:43)
[2018-12-08] MEDS: PROPRANOLOL HCL LA 60 MG CAPCR PO SCH (08:23)
[2018-12-08] MEDS: CITALOPRAM HYDROBROM 20 MG TAB PO SCH (08:23)
[2018-12-08] MEDS: DOCUSATE SODIUM 100 MG CAP PO SCH ×2 (08:23→20:43)
--- NOTE | 2018-12-08 13:08 | RADIOLOGY IMAGING REPORT ---
FACILITY: [facility] [place] PATIENT NAME: Leidy Momin : 1975 MR: [id number] V: [id number] EXAM DATE: ORDERING PHYSICIAN: YAQUELIN TAFOYA TECHNOLOGIST: Location: [facility] [place] Patient: Leidy Momin : 1975 Visit/Account:[id number] Date of Sevice: 12/08/2018 CHEST SINGLE AP INDICATION: Left PTX COMPARISON: 12/07/2018 FINDINGS: Left-sided pigtail catheter is unchanged in position. There has been recurrence of the patient's pneu mothorax. A moderate pneumothorax measuring 30% is present. There is no focal infiltrate or lobar consolidation. The right lung is clear. IMPRESSION: 1. Recurrent left-sided pneumothorax with chest tube in place. There is approximately 30% lung collap se. Report Dictated By: Bonilla Waller at 12/08/2018 1:01 PM Report E-Signed By: Bonilla Waller at 12/08/2018 1:03 PM WSN:[id number]
--- NOTE | 2018-12-08 18:28 | RADIOLOGY IMAGING REPORT ---
FACILITY: [facility] - [place] PATIENT NAME: Leidy Momin : 1975 MR: [id number] V: [id number] EXAM DATE: ORDERING PHYSICIAN: YAQUELIN TAFOYA TECHNOLOGIST: [place] [facility] [place]: Leidy Momin : 1975 Visit/Account:[id number] Date of Sevice: 12/08/2018 CHEST SINGLE AP Indication: Left pneumothorax.. Comparison: X-ray done earlier in the day. Findings: Cardiomediastinal silhouette and pulmonary vessels within normal limits. Left pigtail pleural catheter remains in place and unchanged. There is a persistent left pneumothorax in the superior lateral aspect which is not significant change. The superior aspect measures 2.7 cm and the inferior aspect measuring 1.8 cm. No significant mediastinal shift. This is approximately 253 0 percent. No right pneumothorax. No consolidations or pleural effusions. No discrete nodules. Upper abdomen is unremarkable. No acute bony abnormality. IMPRESSION: 1. Persistent left pneumothorax approximately 25-30 percent. Pleural pigtail catheter remains in plac e on the left side. No appreciable midline shift. No focal infiltrate. No new changes. Report Dictated By: Mitchell Box at 12/08/2018 6:20 PM Report E-Signed By: Mitchell Box at 12/08/2018 6:23 PM WSN:[id number]
[2018-12-08] MEDS: traZODone HCL 50 MG TAB PO SCH (20:43)
[2018-12-09] VITALS (13 sets, daily range): BP systolic 87–119; BP diastolic 47–73
[2018-12-09] MEDS ORDERED: KCL/D1/2NS 20 MEQ 1000 ML 1,000 ML IV SCH (00:10)
--- NOTE | 2018-12-09 06:32 | RADIOLOGY IMAGING REPORT ---
FACILITY: [facility] - [place] PATIENT NAME: Leidy Momin : 1975 MR: [id number] V: [id number] EXAM DATE: ORDERING PHYSICIAN: YAQUELIN TAFOYA TECHNOLOGIST: Location: [facility] Patient: Leidy Momin : 1975 Visit/Account:[id number] Date of Sevice: 12/09/2018 EXAMINATION: Portable AP Chest 12/09/2018 5:00 AM HISTORY: Left PTX COMPARISON: 12/08/2018 FINDINGS: Cardiomediastinal contours: Stable contours. No shift. Lungs and pleura: Left pneumothorax is essentially stable with the pleural line measuring obliquely 2 .7 cm from the ribs and the apex. Left chest tube is unchanged. Pleural-parenchymal scarring in the r ight apex. Bones/soft tissues: Normal IMPRESSION: Stable left pneumothorax and stable left chest tube position. Report Dictated By: Karthik Castaneda MD at 12/09/2018 6:26 AM Report E-Signed By: Karthik Castaneda MD at 12/09/2018 6:28 AM WSN:[id number]
--- NOTE | 2018-12-09 07:51 | General Surgery Progress Note ---
Subjective Progress Notes Subjective No complaints this morning. Physical Exam Vital Signs Date Time Temp Pulse Resp B/P (MAP) Pulse Ox O2 Delivery O2 Flow Rate FiO2 12/09/18 07:35 98.1 75 16 119/67 (84) 93 Room Air 12/09/18 04:43 0.5 Intake and Output 12/09/18 06:59 Intake Total 1665 ml Balance 1665 ml Intake Oral 1160 ml IV Total 505 ml # Voids 2 General Appearance: Alert, Awake, No Acute Distress, Afebrile Cardiovascular: Regular Rate and Rhythm Respiratory: Other (Decreased BS left chest) Extremities: Warm, Perfused Assessment and Plan Problems: (1) Spontaneous tension pneumothorax Status: Acute Assessment & Plan: 12/04/18: Chest tube placed last night in the ER with nearly complete resolution of the pneumothorax and on this morning's chest x-ray, there is no evidence of pneumothorax and there is no air leak on the Pleur-evac. She has essentially been on waterseal all night because suction was turned on but very low such that the Pleur-evac was not even bubbling. Chest tube removed this morning without problems and an airtight dressing placed. We'll get a chest x- ray this afternoon and if it looks good then she can go home. Discussed smoking cessation with her and she is willing to make an attempt at smoking cessation. Consult placed for smoking cessation and then she should follow up with her primary care provider for continued efforts at smoking cessation. She is at high risk for another pneumothorax given the appearance of her bullae on chest CT. There is not just apical bullae but there are bullae throughout the upper long alberto. These results of been discussed with her and it seems that because of this she is motivated to try and stop smoking. 12/05/18: Failed chest tube removal yesterday with reaccumulation of left PTX. Victor Hugo PTX catheter placed yesterday evening with near total resolution of PTX. No air leak this morning. Will connect catheter to heimlich valve and check CXR later today. If she does well with this then will clamp chest tube later today and will get another CXR with the tube clamped. 12/06/18: Clamped chest drain yesterday and PTX recurred, reopened to Heimlich valve and CXR looks good this morning. Will try clamping chest drain again this morning and recheck CXR at noon. Pt o/w doing very well. 12/07/18: Failed clamp trial again so chest drain reopened to heimlich valve. Will try clamp trial again today and chest CXR at noon. If fails then may need to consider VATS with blebectomy and pleurodesis tomorrow or next day. 12/08/18: Tolerated clamp trial yesterday without out increase in PTX last evening. PTX a little bigger this morning. Will keep tube clamped and check the CXR at noon. If improving then will pull chest drain later today. 12/09/18: Continued PTX; failure to resolve with conservative management. Will proceed with VATS/pleurodesis this morning. I have explained the surgery with the patient and her family in great detail along with the alternatives, risks and expected recovery. They seem to understand this discussion and their questions have been answered. Pt would like to proceed with surgery. (2) Emphysematous bleb of lung Status: Chronic (3) Chronic bullous emphysema Status: Chronic (4) Cigarette smoker Status: Chronic Condition Stable. Time Spent: < 30 min Exam Sepsis Risk: No Definite Risk YAQUELIN TAFOYA MD Dec 09, 2018 07:51
[2018-12-09] MEDS ORDERED: [UNRECOGNIZED DRUG - OTHER] IV ONE (08:15)
[2018-12-09] MEDS ORDERED: NS 0.9% IV ONE (08:15)
[2018-12-09] MEDS ORDERED: NS(*) 0.9% 500 ML BAG 500 ML ONE ×2 (08:15→16:31)
[2018-12-09] MEDS ORDERED: DEXAMETHASONE SOD PHOS 10MG/ML ONE (08:16)
[2018-12-09] MEDS ORDERED: PROPOFOL EMUL(*) 10MG/ML 20 ML 20 ML ONE ×2 (08:16→10:12)
[2018-12-09] MEDS ORDERED: LIDOCAINE MPF 1% 5 ML VIAL ONE (08:16)
[2018-12-09] MEDS ORDERED: fentaNYL CITR 250 MCG/5 ML AMP ONE (08:16)
[2018-12-09] MEDS ORDERED: ONDANSETRON 4 MG/2 ML VIAL ONE (08:16)
[2018-12-09] MEDS ORDERED: NORMOSOL R SOLN(*) 1000 ML BAG 1,000 ML IV ONE (08:17)
[2018-12-09] MEDS: FAMOTIDINE 20 MG TAB PO SCH ×2 (08:22→20:43)
[2018-12-09] MEDS: PROPRANOLOL HCL LA 60 MG CAPCR PO SCH (08:22)
--- NOTE | 2018-12-09 08:23 | EKG ---
FACILITY: [facility] - [place] PATIENT NAME: JAZZ HOWARD : [id number] MR: [id number] V: [id number] EXAM DATE: ORDERING PHYSICIAN: YAQUELIN TAFOYA TECHNOLOGIST: RAINA Price Reason : PREOP Blood Pressure : / mmHG Vent. Rate : 066 BPM Atrial Rate : 066 BPM P-R Int : 100 ms QRS Dur : 080 ms QT Int : 396 ms P-R-T Axes : 069 078 077 degrees QTc Int : 415 ms Sinus rhythm with short OK Otherwise normal ECG No previous ECGs available Confirmed by Lavelle Wood ([id number]) on 12/09/2018 1:58:28 PM Referred By: Confirmed By:Lavelle Echols
[2018-12-09] MEDS ORDERED: SUGAMMADEX SOD 500 MG/5 ML SDV ONE (08:26)
[2018-12-09] MEDS ORDERED: KETAMINE HCL 200 MG/20 ML MDV ONE (08:27)
[2018-12-09] MEDS ORDERED: ceFAZolin 1 GM VIAL IVP ONE (08:45)
[2018-12-09] MEDS ORDERED: MIDAZOLAM 2 MG/2 ML VIAL ONE (08:55)
[2018-12-09] MEDS ORDERED: ROPIVACAINE 0.5% 20 ML VIAL ONE (09:40)
[2018-12-09] MEDS ORDERED: ROPIVACAINE 0.2% 20 ML VIAL ONE (09:40)
[2018-12-09] MEDS ORDERED: GLYCOPYRROLATE 1 MG/5 ML INJ ONE (10:10)
[2018-12-09] MEDS ORDERED: ePHEDrine 25 MG/5 ML DISP.SYR IVP ONE (10:10)
[2018-12-09] MEDS ORDERED: EPINEPHrine HCL 1 MG/ML AMP ONE (10:11)
[2018-12-09] MEDS ORDERED: ACETAMINOPHEN(*)1000 MG/100 ML 100 ML IVPB ONE (11:14)
[2018-12-09] MEDS ORDERED: fentaNYL CITR 100 MCG/2 ML AMP ONE (11:15)
--- NOTE | 2018-12-09 11:35 | Post Operative Progress Note ---
Post Operative Progress Note Date: Dec 09, 2018 Time: 11:25 Surgeon: Tye Dictation number: [id number] Anesthesia: Double lumen endotracheal anesthesia by Dr. Martinez Pre-Op Diagnosis: Recurrent, persistent left spontaneous pneumothorax Emphysema secondary to chronic smoking Post-Op Diagnosis: JASKARAN Findings: C/W dx Procedure(s): Left VATS with stapled apical pneumonectomy and mechanical and doxicycline chemical pleurodesis Specimen Removed:(May be N/A): Left lung apex Complications: None Fluids: See anesthesia records Estimated Blood Loss: Minimal Date OP Note Dictated: Dec 09, 2018 Time OP Note Dictated: 11:27 YAQUELIN TAFOYA MD Dec 09, 2018 11:35
[2018-12-09] MEDS: HYDROmorphone HCL 2 MG/ML SDV ONE (11:37)
[2018-12-09] MEDS: DOCUSATE SODIUM 100 MG CAP PO SCH ×2 (13:31→20:43)
[2018-12-09] MEDS: CITALOPRAM HYDROBROM 20 MG TAB PO SCH (13:32)
--- NOTE | 2018-12-09 14:05 | RADIOLOGY IMAGING REPORT ---
FACILITY: [facility] PATIENT NAME: Leidy Momin : 1975 MR: [id number] V: [id number] EXAM DATE: ORDERING PHYSICIAN: YAQUELIN TAFOYA TECHNOLOGIST: Location: [facility] - [place], [place] Patient: Leidy Momin : 1975 Visit/Account:[id number] Date of Sevice: 12/09/2018 CHEST SINGLE AP Indication: Left VATS/pleurodesis.. Comparison: 12/09/2018. Findings: The left pleural pigtail catheter has been removed and replaced with chest tube. Resolution the previ ous left pneumothorax. No left pleural effusion. The medial left upper lobe does show patchy hazy opa city which is new. The left lung is otherwise clear. The right lung is clear without consolidation, p leural effusion or pneumothorax. Biapical postinflammatory changes are present. Cardiomediastinal silhouette and pulmonary vessels within normal limits. Upper abdomen is unremarkable. No acute bony abnormality. Mild subcutaneous emphysema seen along the left chest wall. IMPRESSION: 1. Left pigtail pleural catheter has been replaced with chest tube. No significant residual pneumotho rax is seen. 2. There is a faint hazy opacity seen in the medial left upper lobe. This could be secondary to atele ctasis. However, follow-up exam can reevaluate. Report Dictated By: Mitchell Box at 12/09/2018 1:57 PM Report E-Signed By: Mitchell Box at 12/09/2018 2:00 PM WSN:[id number]
[2018-12-09] MEDS: MORPHINE 4 MG/ML SDV IVP PRN ×2 (16:21→22:10)
[2018-12-09] MEDS: ACETAMINOPHEN(*)1000 MG/100 ML 100 ML IVPB SCH (17:40)
[2018-12-09] MEDS: CYCLOBENZAPRINE HCL 10 MG TAB PO PRN (20:42)
[2018-12-09] MEDS: traZODone HCL 50 MG TAB PO SCH (20:43)
[2018-12-10] MEDS: ACETAMINOPHEN(*)1000 MG/100 ML 100 ML IVPB SCH ×2 (00:40→04:58)
--- NOTE | 2018-12-10 02:39 | OPERATIVE REPORT 1 ---
EVENT DATE: December 09, 2018 SURGEON: Andrae Gamble MD ANESTHESIOLOGIST: Mikhail Martinez MD ANESTHESIA: Double-lumen general endotracheal anesthesia. PREOPERATIVE DIAGNOSIS 1. Recurrent, persistent left pneumothorax. 2. Emphysema secondary to chronic smoking. POSTOPERATIVE DIAGNOSIS 1. Recurrent, persistent left pneumothorax. 2. Emphysema secondary to chronic smoking. PROCEDURE PERFORMED Left video-assisted thoracoscopic surgery with stapled apical pneumonectomy and chemical and mechanical pleurodesis. COMPLICATIONS None. CONDITION Stable. ESTIMATED BLOOD LOSS Minimal. SPECIMEN Left lung apex INDICATIONS This is a 43-year-old female, a long-term smoker, 25 pack years since she was 18 years old, with a previous history of a pneumothorax several years ago, who presents with a new left-sided spontaneous pneumothorax. I have attempted to cause resolution with a chest tube, but every time I clamp the chest tube, her lung slowly collapses again. Because of this, I have discussed VATS with apical pneumonectomy, as there are blebs on the apex of her lung, actually affecting about half of her upper lobe, but the most prominent ones are in the apex, and pleurodesis, and she has provided consent for this. DESCRIPTION OF PROCEDURE Patient was brought to the operating room and placed supine on the operating table. Double-lumen endotracheal intubation was performed by Dr. Martinez, and position of the tube was confirmed bronchoscopically by Dr. Martinez. I watched and confirmed as well. She was then placed in a right lateral decubitus position on the table with all of her pressure points and nerves padded, and she was secured to the table, and the bed was flexed to open up the intercostal spaces. I removed the pigtail catheter that I had placed several days ago, and then the left chest was prepped and draped in a sterile fashion. I then identified the inferior angle of her left scapula and went just inferoposterior to this, in about the fifth intercostal groove, and made a small 5 mm incision in this area after anesthetizing the skin with 0.5% ropivacaine plain. I then inserted a 5 mm port through this wound into the pleural space without any problems or injury to the lung. I then, under direct visualization, placed a 12 mm port in the midaxillary line in about the fifth intercostal space under direct visualization without problems, and then placed another 5 mm port in the fourth intercostal space on the anterior axillary line under direct visualization. I then suctioned out some fluid in the pleural space, and then inspected the lung, which had signs of chronic smoking. There were some adhesions on the anterior part of the lung and up on the apex, and these were taken down easily with hook electrocautery. This mobilized the superior lobe and allowed me to easily see the blebs that were on the apical surface. I removed the apex of the lung, including the blebs, with the stapler with the white load; it took two loads. This was removed from the pleural space and passed off the field to be sent to pathology. I then scraped up the entire parietal pleura with a Bovie scratch pad from the apex all the way down to the diaphragm, but of course I did not do it on the mediastinum, and I did not do it too much on the diaphragm. I then obtained 500 mg of doxycycline mixed in 50 mL of sterile normal saline for 10 mg/mL solution, and I sprayed this over the entire pleural space and then placed two 28-Bangladeshi chest tubes, one anteriorly and one posteriorly. The chest tubes were secured to the skin with 0 silk sutures. Then, after removing the remaining port, I closed the skin with 4-0 Monocryl subcuticular sutures. The skin was cleaned, dried, and I placed Steri-Strips on the port site, followed by sterile surgical dressing, and then I placed Xeroform around the chest tubes, followed by sterile 4x4 gauze which were taped into place with foam tape. The patient was then placed supine on the operating table and awakened and extubated and transported to her bed, and transported to the recovery room in stable condition, having tolerated the procedure without any apparent problems. I kept the chest tubes clamped and will keep them clamped for two hours to allow the doxycycline to cause inflammation in the pleura, at which time we will hook them up to suction via the Pleur-Evacs at 20 mL of water. The patient tolerated the procedure without any apparent problems. TITA
[2018-12-10 04:55] VITALS: BP 112/73
--- NOTE | 2018-12-10 06:14 | RADIOLOGY IMAGING REPORT ---
[facility] PATIENT NAME: Leidy Momin : 1975 MR: [id number] V: [id number] EXAM DATE: ORDERING PHYSICIAN: YAQUELIN TAFOYA TECHNOLOGIST: Location: [facility] [place] Patient: Leidy Momin : 1975 Visit/Account:[id number] Date of Sevice: 12/10/2018 CHEST SINGLE AP 12/10/2018 05:00 hours. HISTORY: Left VATS and pleurodesis. COMPARISON: 12/09/2018 and studies dating to 07/01/2015. TECHNIQUE: Portable AP view of the chest. FINDINGS: Tubes/lines/hardware: There are 2 left-sided chest tubes, unchanged. Pulmonary/pleura: Tiny left apical pneumothorax has slightly decreased in size. No change in the left greater than right upper lobe opacities. No pleural effusion. There is hyperinflation. Cardiomediastinal: Cardiac and mediastinal silhouettes are within normal limits. Bones/soft tissues: No acute osseous abnormality. There is a small amount of subcutaneous emphysema a t the base of the left neck and of the left chest wall, mildly improved. The visible abdomen is mervat l. IMPRESSION: 1. Decrease in size of the tiny left apical pneumothorax. 2. No change in aeration of the lungs. 3. Improvement in the subcutaneous emphysema of the left chest wall and neck. Report Dictated By: Rebecca Lugo at 12/10/2018 6:06 AM Report E-Signed By: Rebecca Lugo at 12/10/2018 6:10 AM WSN:[id number]
[2018-12-10 07:00] VITALS: BP 110/76
[2018-12-10] MEDS: CYCLOBENZAPRINE HCL 10 MG TAB PO PRN (08:34)
[2018-12-10] MEDS: ENOXAPARIN 40 MG/0.4ML SYR SC SCH (08:35)
[2018-12-10] MEDS: PROPRANOLOL HCL LA 60 MG CAPCR PO SCH (08:35)
[2018-12-10] MEDS: CITALOPRAM HYDROBROM 20 MG TAB PO SCH (08:35)
[2018-12-10] MEDS: DOCUSATE SODIUM 100 MG CAP PO SCH ×2 (08:35→20:57)
[2018-12-10] MEDS: FAMOTIDINE 20 MG TAB PO SCH ×2 (08:35→20:57)
--- NOTE | 2018-12-10 08:36 | General Surgery Progress Note ---
Subjective Progress Notes Subjective Only complaint is pain due to the chest tubes. No other complaints this morning. Physical Exam Vital Signs Date Time Temp Pulse Resp B/P (MAP) Pulse Ox O2 Delivery O2 Flow Rate FiO2 12/10/18 07:00 92 12/10/18 07:00 98.1 73 16 110/76 (87) Room Air 12/10/18 00:40 1.5 Intake and Output 12/10/18 07:00 Intake Total 1650 ml Output Total 245 ml Balance 1405 ml IV Total 1650 ml Chest Tube Drainage Total 225 ml Estimated Blood Loss 20 ml # Voids 3 General Appearance: Alert, Awake, No Acute Distress, Afebrile Chest: Other (Chest tube sites/dressings look good. Pleurovacs without air leak although they are tidaling.) Assessment and Plan Problems: (1) Spontaneous tension pneumothorax Status: Acute Assessment & Plan: 12/04/18: Chest tube placed last night in the ER with nearly complete resolution of the pneumothorax and on this morning's chest x-ray, there is no evidence of pneumothorax and there is no air leak on the Pleur-evac. She has essentially been on waterseal all night because suction was turned on but very low such that the Pleur-evac was not even bubbling. Chest tube removed this morning without problems and an airtight dressing placed. We'll get a chest x- ray this afternoon and if it looks good then she can go home. Discussed smoking cessation with her and she is willing to make an attempt at smoking cessation. Consult placed for smoking cessation and then she should follow up with her primary care provider for continued efforts at smoking cessation. She is at high risk for another pneumothorax given the appearance of her bullae on chest CT. There is not just apical bullae but there are bullae throughout the upper long alberto. These results of been discussed with her and it seems that because of this she is motivated to try and stop smoking. 12/05/18: Failed chest tube removal yesterday with reaccumulation of left PTX. Victor Hugo PTX catheter placed yesterday evening with near total resolution of PTX. No air leak this morning. Will connect catheter to heimlich valve and check CXR later today. If she does well with this then will clamp chest tube later today and will get another CXR with the tube clamped. 12/06/18: Clamped chest drain yesterday and PTX recurred, reopened to Heimlich valve and CXR looks good this morning. Will try clamping chest drain again this morning and recheck CXR at noon. Pt o/w doing very well. 12/07/18: Failed clamp trial again so chest drain reopened to heimlich valve. Will try clamp trial again today and chest CXR at noon. If fails then may need to consider VATS with blebectomy and pleurodesis tomorrow or next day. 12/08/18: Tolerated clamp trial yesterday without out increase in PTX last evening. PTX a little bigger this morning. Will keep tube clamped and check the CXR at noon. If improving then will pull chest drain later today. 12/09/18: Continued PTX; failure to resolve with conservative management. Will proceed with VATS/pleurodesis this morning. I have explained the surgery with the patient and her family in great detail along with the alternatives, risks and expected recovery. They seem to understand this discussion and their questions have been answered. Pt would like to proceed with surgery. 12/10/18: POD#1 s/p left VATS/apical pneumonectomy/mechanical and chemical pleurodesis. Doing well. Continue chest tubes to wall suction today. Water seal tomorrow if CXR looks good. Will start removing chest tubes tomorrow afternoon if her CXRs continue to look good. (2) Emphysematous bleb of lung Status: Chronic (3) Chronic bullous emphysema Status: Chronic (4) Cigarette smoker Status: Chronic Condition Stable. Time Spent: < 30 min Exam Sepsis Risk: No Definite Risk YAQUELIN TAFOYA MD Dec 10, 2018 08:36
[2018-12-10 10:29] VITALS: BP 126/85
[2018-12-10] MEDS: MORPHINE 4 MG/ML SDV IVP PRN (15:49)
[2018-12-10 15:53] VITALS: BP 109/70
[2018-12-10 18:43] VITALS: BP 101/61
[2018-12-10] MEDS: traZODone HCL 50 MG TAB PO SCH (20:57)
[2018-12-11 05:19] VITALS: BP 126/79
--- NOTE | 2018-12-11 05:56 | RADIOLOGY IMAGING REPORT ---
FACILITY: [facility] PATIENT NAME: Leidy Momin : 1975 MR: [id number] V: [id number] EXAM DATE: ORDERING PHYSICIAN: YAQUELIN TAFOYA TECHNOLOGIST: Location: [facility] - [place], [place] Patient: Leidy Momin : 1975 Visit/Account:[id number] Date of Sevice: 12/11/2018 CHEST SINGLE AP 12/11/2018 05:00 hours. HISTORY: Left VATS/pleurodesis. Follow-up. COMPARISON: 12/10/2018 and studies dating to 07/01/2015. TECHNIQUE: Portable AP view of the chest. FINDINGS: Tubes/lines/hardware: There are 2 left-sided chest tubes, unchanged. Pulmonary/pleura: Tiny left apical pneumothorax is unchanged. There is pleural thickening or scarring at the apices, unchanged. No pleural effusion. Cardiomediastinal: Cardiac and mediastinal silhouettes are within normal limits. Bones/soft tissues: No acute osseous abnormality. The visible abdomen is normal. There is mild subcut aneous emphysema of the left chest wall and neck, slightly improved. IMPRESSION: 1. Stable tiny left apical pneumothorax. 2. Slight improvement in the subcutaneous emphysema. Report Dictated By: Rebecca Lugo at 12/11/2018 5:50 AM Report E-Signed By: Rebecca Lugo at 12/11/2018 5:53 AM WSN:[id number]
[2018-12-11 07:40] VITALS: BP 114/79
[2018-12-11] MEDS: DOCUSATE SODIUM 100 MG CAP PO SCH ×2 (08:18→21:47)
[2018-12-11] MEDS: ENOXAPARIN 40 MG/0.4ML SYR SC SCH (08:18)
[2018-12-11] MEDS: PROPRANOLOL HCL LA 60 MG CAPCR PO SCH (08:18)
[2018-12-11] MEDS: FAMOTIDINE 20 MG TAB PO SCH ×2 (08:18→21:47)
[2018-12-11] MEDS: CITALOPRAM HYDROBROM 20 MG TAB PO SCH (08:18)
--- NOTE | 2018-12-11 09:15 | General Surgery Progress Note ---
Subjective Progress Notes Subjective Main complaint is pain/discomfort at posterior chest tube. Physical Exam Vital Signs Date Time Temp Pulse Resp B/P (MAP) Pulse Ox O2 Delivery O2 Flow Rate FiO2 12/11/18 07:40 98.0 71 16 114/79 (91) 96 Nasal Cannula 0.5 Intake and Output 12/11/18 07:00 Intake Total 0 ml Output Total 95 ml Balance -95 ml Intake Oral 0 ml Chest Tube Drainage Total 95 ml # Voids 3 General Appearance: Alert, Awake, No Acute Distress, Afebrile Cardiovascular: Regular Rate and Rhythm Respiratory: Clear to Auscultation Extremities: Warm, Perfused Assessment and Plan Problems: (1) Spontaneous tension pneumothorax Status: Acute Assessment & Plan: 12/04/18: Chest tube placed last night in the ER with nearly complete resolution of the pneumothorax and on this morning's chest x-ray, there is no evidence of pneumothorax and there is no air leak on the Pleur-evac. She has essentially been on waterseal all night because suction was turned on but very low such that the Pleur-evac was not even bubbling. Chest tube removed this morning without problems and an airtight dressing placed. We'll get a chest x- ray this afternoon and if it looks good then she can go home. Discussed smoking cessation with her and she is willing to make an attempt at smoking cessation. Consult placed for smoking cessation and then she should follow up with her primary care provider for continued efforts at smoking cessation. She is at high risk for another pneumothorax given the appearance of her bullae on chest CT. There is not just apical bullae but there are bullae throughout the upper long alberto. These results of been discussed with her and it seems that because of this she is motivated to try and stop smoking. 12/05/18: Failed chest tube removal yesterday with reaccumulation of left PTX. Victor Hugo PTX catheter placed yesterday evening with near total resolution of PTX. No air leak this morning. Will connect catheter to heimlich valve and check CXR later today. If she does well with this then will clamp chest tube later today and will get another CXR with the tube clamped. 12/06/18: Clamped chest drain yesterday and PTX recurred, reopened to Heimlich valve and CXR looks good this morning. Will try clamping chest drain again this morning and recheck CXR at noon. Pt o/w doing very well. 12/07/18: Failed clamp trial again so chest drain reopened to heimlich valve. Will try clamp trial again today and chest CXR at noon. If fails then may need to consider VATS with blebectomy and pleurodesis tomorrow or next day. 12/08/18: Tolerated clamp trial yesterday without out increase in PTX last evening. PTX a little bigger this morning. Will keep tube clamped and check the CXR at noon. If improving then will pull chest drain later today. 12/09/18: Continued PTX; failure to resolve with conservative management. Will proceed with VATS/pleurodesis this morning. I have explained the surgery with the patient and her family in great detail along with the alternatives, risks and expected recovery. They seem to understand this discussion and their questions have been answered. Pt would like to proceed with surgery. 12/10/18: POD#1 s/p left VATS/apical pneumonectomy/mechanical and chemical pleurodesis. Doing well. Continue chest tubes to wall suction today. Water seal tomorrow if CXR looks good. Will start removing chest tubes tomorrow afternoon if her CXRs continue to look good. 12/11/18: POD#2. CXR looks good. No air leak in either chest tube. Will switch to water seal and will get a CXR later today. If looks good, will pull posterior chest tube this afternoon. (2) Emphysematous bleb of lung Status: Chronic (3) Chronic bullous emphysema Status: Chronic (4) Cigarette smoker Status: Chronic Condition Stable. Time Spent: < 30 min Exam Sepsis Risk: No Definite Risk YAQUELIN TAFOYA MD Dec 11, 2018 09:15
[2018-12-11 11:32] VITALS: BP 128/74
--- NOTE | 2018-12-11 14:20 | RADIOLOGY IMAGING REPORT ---
FACILITY: [facility] - [place] PATIENT NAME: Leidy Momin : 1975 MR: [id number] V: [id number] EXAM DATE: ORDERING PHYSICIAN: YAQUELIN TAFOYA TECHNOLOGIST: Location: [facility] Patient: Leidy Momin : 1975 Visit/Account:[id number] Date of Sevice: 12/11/2018 Exam type: CHEST SINGLE AP History: Left recurrent PTX Comparison: December 11, 2018. At 5:25 AM Findings: The two left-sided chest tubes appear unchanged. There is a minimal left apical pneumothorax that re trinity unchanged. There is a decrease in the subcutaneous emphysema on the left. Hazy area of increa sed density medial left upper lobe appears unchanged. Right apical scarring/blebs again seen. The c ardiac silhouette is normal in size IMPRESSION: 1. Two left-sided chest tubes appear unchanged Minimal left apical pneumothorax unchanged Report Dictated By: Emilia Arias MD at 12/11/2018 2:12 PM Report E-Signed By: Emilia Arias MD at 12/11/2018 2:15 PM WSN:[email or web address]
[2018-12-11 15:31] VITALS: BP 129/82
--- NOTE | 2018-12-11 18:31 | Miscellaneous Provider Note ---
Miscellaneous Provider Note Note Pt doing well. No air leak. CXR on water seal looks good without PTX. Posterior chest tube removed this evening. Will get CXR in am and if it looks good and no air leak will remove the anterior chest tube in the morning. YAQUELIN TAFOYA MD Dec 11, 2018 18:30
[2018-12-11 19:16] VITALS: BP 131/80
--- NOTE | 2018-12-11 21:16 | RADIOLOGY IMAGING REPORT ---
FACILITY: [facility] [place]IENT NAME: Leidy Momin : 1975 MR: [id number] V: [id number] EXAM DATE: ORDERING PHYSICIAN: YAQUELIN TAFOYA [place]CHN[place]: [place] [facility] [place]idy M[place] : 1975 Visit/Account:[id number] Date of Sevice: 12/11/2018 CHEST SINGLE AP 12/11/2018 20:00 hours. HISTORY: Posterior chest tube removed. COMPARISON: 12/11/2018 at 1:04 PM and studies dating to 07/01/2015. TECHNIQUE: Portable AP view of the chest. FINDINGS: Tubes/lines/hardware: There is a single left chest tube. The second left chest tube has been removed. Pulmonary/pleura: There is a tiny left apical pneumothorax that continues to decrease in size. There is symmetric apical scarring or thickening. There is hyperinflation. There is no pneumothorax or pleu ral effusion. Cardiomediastinal: Cardiac and mediastinal silhouettes are within normal limits. Bones/soft tissues: No acute osseous abnormality. The visible abdomen is normal. There is mild subcut aneous emphysema of the left lateral chest wall, unchanged. IMPRESSION: 1. Continued decrease in size of the tiny left apical pneumothorax post chest tube removal. 2. No acute cardiopulmonary process. Report Dictated By: Rebecca Lugo at 12/11/2018 9:05 PM Report E-Signed By: Rebecca Lugo at 12/11/2018 9:12 PM WSN:[id number]
[2018-12-11] MEDS: traZODone HCL 50 MG TAB PO SCH (21:47)
[2018-12-12 06:06] VITALS: BP 128/85
--- NOTE | 2018-12-12 06:37 | RADIOLOGY IMAGING REPORT ---
FACILITY: [facility] [place] PATIENT NAME: Leidy Momin : 1975 MR: [id number] V: [id number] EXAM DATE: ORDERING PHYSICIAN: YAQUELIN TAFOYA TECHNOLOGIST: Location: [facility] [place] Patient: Leidy Momin : 1975 Visit/Account:[id number] Date of Sevice: 12/12/2018 CHEST SINGLE AP 12/12/2018 05:00 hours. HISTORY: Left recurrent pneumothorax. COMPARISON: 12/11/2018 and studies dating to 07/01/2015. TECHNIQUE: Portable AP view of the chest. FINDINGS: Tubes/lines/hardware: Left chest tube is unchanged. Pulmonary/pleura: Tiny left apical pneumothorax is unchanged in size. There is scarring or thickening at the lung apices, unchanged. There is hyperinflation. No pleural effusion. Cardiomediastinal: Cardiac and mediastinal silhouettes are within normal limits. Bones/soft tissues: No acute osseous abnormality. The visible abdomen is normal. Subcutaneous emphyse ma of the left chest wall has decreased. IMPRESSION: 1. Stable tiny left apical pneumothorax. 2. Improving subcutaneous emphysema of the left chest wall. Report Dictated By: Rebecca Lugo at 12/12/2018 6:27 AM Report E-Signed By: Rebecca Lugo at 12/12/2018 6:32 AM WSN:[id number]
--- NOTE | 2018-12-12 06:55 | General Surgery Progress Note ---
Subjective Progress Notes Subjective No complaints this morning. Feels a lot better and slept well last night after posterior chest tube removed. Physical Exam Vital Signs Date Time Temp Pulse Resp B/P (MAP) Pulse Ox O2 Delivery O2 Flow Rate FiO2 12/12/18 06:06 98.0 50 128/85 (99) 97 Nasal Cannula 0.5 12/11/18 19:16 18 Intake and Output 12/12/18 06:59 Intake Total 0 ml Output Total 56 ml Balance -56 ml Intake Oral 0 ml Chest Tube Drainage Total 56 ml # Voids 4 General Appearance: Alert, Awake, No Acute Distress, Afebrile Cardiovascular: Regular Rate and Rhythm Respiratory: Clear to Auscultation Extremities: Warm, Perfused Assessment and Plan Problems: (1) Spontaneous tension pneumothorax Status: Acute Assessment & Plan: 12/04/18: Chest tube placed last night in the ER with nearly complete resolution of the pneumothorax and on this morning's chest x-ray, there is no evidence of pneumothorax and there is no air leak on the Pleur-evac. She has essentially been on waterseal all night because suction was turned on but very low such that the Pleur-evac was not even bubbling. Chest tube removed this morning without problems and an airtight dressing placed. We'll get a chest x- ray this afternoon and if it looks good then she can go home. Discussed smoking cessation with her and she is willing to make an attempt at smoking cessation. Consult placed for smoking cessation and then she should follow up with her primary care provider for continued efforts at smoking cessation. She is at high risk for another pneumothorax given the appearance of her bullae on chest CT. There is not just apical bullae but there are bullae throughout the upper long alberto. These results of been discussed with her and it seems that because of this she is motivated to try and stop smoking. 12/05/18: Failed chest tube removal yesterday with reaccumulation of left PTX. Victor Hugo PTX catheter placed yesterday evening with near total resolution of PTX. No air leak this morning. Will connect catheter to heimlich valve and check CXR later today. If she does well with this then will clamp chest tube later today and will get another CXR with the tube clamped. 12/06/18: Clamped chest drain yesterday and PTX recurred, reopened to Heimlich valve and CXR looks good this morning. Will try clamping chest drain again this morning and recheck CXR at noon. Pt o/w doing very well. 12/07/18: Failed clamp trial again so chest drain reopened to heimlich valve. Will try clamp trial again today and chest CXR at noon. If fails then may need to consider VATS with blebectomy and pleurodesis tomorrow or next day. 12/08/18: Tolerated clamp trial yesterday without out increase in PTX last evening. PTX a little bigger this morning. Will keep tube clamped and check the CXR at noon. If improving then will pull chest drain later today. 12/09/18: Continued PTX; failure to resolve with conservative management. Will proceed with VATS/pleurodesis this morning. I have explained the surgery with the patient and her family in great detail along with the alternatives, risks and expected recovery. They seem to understand this discussion and their questions have been answered. Pt would like to proceed with surgery. 12/10/18: POD#1 s/p left VATS/apical pneumonectomy/mechanical and chemical pleurodesis. Doing well. Continue chest tubes to wall suction today. Water seal tomorrow if CXR looks good. Will start removing chest tubes tomorrow afternoon if her CXRs continue to look good. 12/11/18: POD#2. CXR looks good. No air leak in either chest tube. Will switch to water seal and will get a CXR later today. If looks good, will pull posterior chest tube this afternoon. 12/12/18: POD#3. CXR looked good yesterday on water seal so posterior chest tube removed last night. Post pull CXR looked good as does this morning's CXR so anterior chest tube removed this morning. Will get another CXR later this morning without recurrent PTX. If it looks good then will d/c to home later today. (2) Emphysematous bleb of lung Status: Chronic (3) Chronic bullous emphysema Status: Chronic (4) Cigarette smoker Status: Chronic Condition Stable. Time Spent: < 30 min Exam Sepsis Risk: No Definite Risk YAQUELIN TAFOYA MD Dec 12, 2018 06:55
--- NOTE | 2018-12-12 08:00 | RADIOLOGY IMAGING REPORT ---
FACILITY: [facility] PATIENT NAME: Leidy Momin : 1975 MR: [id number] V: [id number] EXAM DATE: ORDERING PHYSICIAN: YAQUELIN TAFOYA TECHNOLOGIST: Location: [facility] Patient: Leidy Momin : 1975 Visit/Account:[id number] Date of Sevice: 12/08/2018 EXAMINATION: Portable AP Chest 12/08/2018 5:00 AM HISTORY: Left PTX COMPARISON: 12/07/2018 FINDINGS: Cardiomediastinal contours: Normal contours. No shift. Lungs and pleura: Chest tube on the left is stable. Left pneumothorax is increased with pleural line now measuring about 2 cm from the bony apex, just under 1 cm previously. Bones/soft tissues: Normal IMPRESSION: Left pneumothorax is mildly increased in size. Left chest tube remains. Report Dictated By: Karthik Castaneda MD at 12/12/2018 7:52 AM Report E-Signed By: Karthik Castaneda MD at 12/12/2018 7:56 AM WSN:[id number]
[2018-12-12] MEDS: PROPRANOLOL HCL LA 60 MG CAPCR PO SCH (08:15)
[2018-12-12] MEDS: ENOXAPARIN 40 MG/0.4ML SYR SC SCH (08:16)
[2018-12-12] MEDS: FAMOTIDINE 20 MG TAB PO SCH (08:16)
[2018-12-12] MEDS: CITALOPRAM HYDROBROM 20 MG TAB PO SCH (08:16)
[2018-12-12] MEDS: DOCUSATE SODIUM 100 MG CAP PO SCH (08:16)
[2018-12-12 11:19] VITALS: BP 130/82
--- NOTE | 2018-12-12 11:25 | RADIOLOGY IMAGING REPORT ---
FACILITY: [facility] [place] PATIENT NAME: Leidy Momin : 1975 MR: [id number] V: [id number] EXAM DATE: ORDERING PHYSICIAN: YAQUELIN TAFOYA TECHNOLOGIST: Location: [facility] [place] Patient: Leidy Momin : 1975 Visit/Account:[id number] Date of Sevice: 12/12/2018 Exam type: CHEST SINGLE AP History: Removed chest tube Comparison: December 12, 2018 at 6:11 AM. Findings: Left chest tube is been removed. There is no evidence of a left-sided pneumothorax at this time. A tiny amount of subcutaneous emphysema is noted over the left lateral chest wall. Biapical pleural bl ebs again seen. Small amount of airspace consolidation the medial left upper lobe also unchanged. T here is no mediastinal shift. The cardiac silhouette is normal. IMPRESSION: 1. Interval removal of the left chest tube with no evidence of a pneumothorax at this time Report Dictated By: Emilia Arias MD at 12/12/2018 11:18 AM Report E-Signed By: Emilia Arias MD at 12/12/2018 11:20 AM WSN:[id number]
[2018-12-12] MEDS ORDERED: DOCU-202 PO (11:32)
[2018-12-12] MEDS ORDERED: PER PO (11:32)
--- NOTE | 2018-12-12 11:40 | Short(Outpt) Discharge Summary ---
Discharge Summary Reason for Hosp/Final Diag: (1) Spontaneous tension pneumothorax Status: Acute Hospital Course & Plan: 12/04/18: Chest tube placed last night in the ER with nearly complete resolution of the pneumothorax and on this morning's chest x- ray, there is no evidence of pneumothorax and there is no air leak on the Pleur- evac. She has essentially been on waterseal all night because suction was turned on but very low such that the Pleur-evac was not even bubbling. Chest tube removed this morning without problems and an airtight dressing placed. We'll get a chest x-ray this afternoon and if it looks good then she can go home. Discussed smoking cessation with her and she is willing to make an attempt at smoking cessation. Consult placed for smoking cessation and then she should follow up with her primary care provider for continued efforts at smoking cessation. She is at high risk for another pneumothorax given the appearance of her bullae on chest CT. There is not just apical bullae but there are bullae throughout the upper long alberto. These results of been discussed with her and it seems that because of this she is motivated to try and stop smoking. 12/05/18: Failed chest tube removal yesterday with reaccumulation of left PTX. Victor Hugo PTX catheter placed yesterday evening with near total resolution of PTX. No air leak this morning. Will connect catheter to heimlich valve and check CXR later today. If she does well with this then will clamp chest tube later today and will get another CXR with the tube clamped. 12/06/18: Clamped chest drain yesterday and PTX recurred, reopened to Heimlich valve and CXR looks good this morning. Will try clamping chest drain again this morning and recheck CXR at noon. Pt o/w doing very well. 12/07/18: Failed clamp trial again so chest drain reopened to heimlich valve. Will try clamp trial again today and chest CXR at noon. If fails then may need to consider VATS with blebectomy and pleurodesis tomorrow or next day. 12/08/18: Tolerated clamp trial yesterday without out increase in PTX last evening. PTX a little bigger this morning. Will keep tube clamped and check the CXR at noon. If improving then will pull chest drain later today. 12/09/18: Continued PTX; failure to resolve with conservative management. Will proceed with VATS/pleurodesis this morning. I have explained the surgery with the patient and her family in great detail along with the alternatives, risks and expected recovery. They seem to understand this discussion and their questions have been answered. Pt would like to proceed with surgery. 12/10/18: POD#1 s/p left VATS/apical pneumonectomy/mechanical and chemical pleurodesis. Doing well. Continue chest tubes to wall suction today. Water seal tomorrow if CXR looks good. Will start removing chest tubes tomorrow afternoon if her CXRs continue to look good. 12/11/18: POD#2. CXR looks good. No air leak in either chest tube. Will switch to water seal and will get a CXR later today. If looks good, will pull posterior chest tube this afternoon. 12/12/18: POD#3. CXR looked good yesterday on water seal so posterior chest tube removed last night. Post pull CXR looked good as does this morning's CXR so anterior chest tube removed this morning. Will get another CXR later this morning without recurrent PTX. If it looks good then will d/c to home later today. 12/12/18 (afternoon): Anterior chest tube removed this morning and postpull CXR looks good, no PTX. Will d/c to home today with o/p f/u. (2) Emphysematous bleb of lung Status: Chronic (3) Chronic bullous emphysema Status: Chronic (4) Cigarette smoker Status: Chronic Departure Discharge to: Home, Self Care Discharge Instructions Home Meds Active Scripts Oxycodone/Acetaminophen (OXYCODONE/ACETAMINOPHEN 5MG/325 MG) 5 Mg/325 Mg Tab, 1 TAB PO Q4H PRN for PAIN, #15 TAB 0 Refills Prov:YAQUELIN TAFOYA MD 12/12/18 Docusate Sodium (DOCUSATE SODIUM) 100 Mg Capsule, 1 CAP PO BID, #30 CAPSULE 0 Refills Prov:YAQUELIN TAFOYA MD 12/12/18 Reported Medications Trazodone Hcl (TRAZODONE HCL) 100 Mg Tablet, 100 MG PO QHS, TAB 12/03/18 Citalopram Hydrobromide (CITALOPRAM HBR) 20 Mg Tablet, 40 MG PO QDAY, #5 TAB 12/03/18 Propranolol Hcl (PROPRANOLOL HCL) 60 Mg Cap.sa.24h, 60 MG PO QDAY 12/03/18 Cyclobenzaprine Hcl (CYCLOBENZAPRINE HCL) 10 Mg Tablet, 10 MG PO BID PRN for SPASMS, #9 TAB 12/03/18 Follow up Referrals: General Surgery - 12/26/18 @ Surgery, General with YAQUELIN TAFOYA MD You have a follow up appointment scheduled with Dr. Tafoya on 12/26/18, at 1:15pm. Please get a chest x-ray before your appointment. Diet: Regular Activity: As Tolerated Special Instructions: You may remove the clear dressing on your left chest on 12/15/18. Leave the steristrip on you back incision until it falls off on it's own. You may shower as desired. Avoid any altitude changes for 2 weeks, I would discourage travel over any moutain passes and no flying or scuba diving for the next 2 weeks. You have emphysema from smoking which is what led to this condition for which you were hospitalized and ultimately required surgery. I recommend that you quit smoking so that your overall lung health can improve and you don't develop more bleb than are already present. YAQUELIN TAFOYA MD Dec 12, 2018 11:40
== END 2018-12-12 13:00 | disposition home or self-care (01) | DRG 165 ==
LOC: ER 18:29 → MED 20:45
PROVIDERS: ADMIT Surgery; ATTEND Surgery
PROC: 0W9B30Z Drainage of Left Pleural Cavity with Drainage Device, Percutaneous Approach (ICD-10-PCS; 2018-12-03)
PROC: 0B5P4ZZ Destruction of Left Pleura, Percutaneous Endoscopic Approach (ICD-10-PCS; 2018-12-09)
PROC: 0W9B30Z Drainage of Left Pleural Cavity with Drainage Device, Percutaneous Approach (ICD-10-PCS; 2018-12-09)
PROC: 0BBG4ZX Excision of Left Upper Lung Lobe, Percutaneous Endoscopic Approach, Diagnostic (ICD-10-PCS; principal; 2018-12-09 09:05)
PROC: 3E0L4GC Introduction of Other Therapeutic Substance into Pleural Cavity, Percutaneous Endoscopic Approach (ICD-10-PCS; 2018-12-09 09:05)
PROC: 0W9B30Z Drainage of Left Pleural Cavity with Drainage Device, Percutaneous Approach (ICD-10-PCS; 2018-12-11)
PROC: 2W54XYZ Removal of Other Device on Chest Wall (ICD-10-PCS; 2018-12-11)
DX: J93.0 Spontaneous tension pneumothorax (principal); J43.9 Emphysema, unspecified; F17.210 Nicotine dependence, cigarettes, uncomplicated; F32.9 Major depressive disorder, single episode, unspecified; G43.909 Migraine, unspecified, not intractable, without status migrainosus; I27.20 Pulmonary hypertension, unspecified; Z88.2 Allergy status to sulfonamides; Z88.8 Allergy status to other drugs, medicaments and biological substances
CPT/HCPCS: 36415; 71045; 71260; 81025; 82040; 82247; 82310; 82374; 82435; 82565; 82947; 84075; 84132; 84155; 84295; 84450; 84460; 84520; 84703; 85025; 85610; 85730; 86850; 86900; 86901; 88305; 93005; A7048; J0131; J0171; J0690; J1100; J1170; J1650; J2001; J2250; J2270; J2405; J2704; J2795; J3010; J3480; J3490; J7030; J7050; Q9967; S0119

== ENCOUNTER → 2018-12-03 | Outpatient (CLI) | payer MEDICAID ==
[~2018-12-03] MED LIST: CITA-145 PO; CYC10 PO; CYCL10TA29 PO; IBU800 PO; NORG1TAB5 PO; PER PO; PROP60CA22 PO; TRAZ100T31 PO; VAR1 PO; [UNRECOGNIZED DRUG - REMARK]
--- NOTE | 2018-12-03 18:12 | RADIOLOGY IMAGING REPORT ---
FACILITY: [facility] - [place] PATIENT NAME: Leidy Momin : 1975 MR: [id number] V: [id number] EXAM DATE: ORDERING PHYSICIAN: CHIARA JOHNSON TECHNOLOGIST: Location: [facility] [place] Patient: Leidy Momin : 1975 Visit/Account:[id number] Date of Sevice: 12/03/2018 Exam type: CHEST PA AND LAT History: Chest pain Comparison: August 18, 2015. Findings: There is an approximate 30-40% left-sided pneumothorax with a mild bwsn-xg-ffwop mediastinal shift. Small air-fluid level is noted along the inferior aspect of the left thorax consistent with a hydropn eumothorax. There are multiple small blebs identified in the pulmonary apices bilaterally. Increase d AP diameter the chest noted consistent with hyperinflation. The cardiac silhouette remains stable. IMPRESSION: 1. Approximate 30-40% left-sided pneumothorax with slight [id number]-kg-[id number] mediastinal shift Biapical pleural blebs The patient was immediately notified on her cell phone to return to the emergency room. Report Dictated By: Emilia Arias MD at 12/03/2018 5:58 PM Report E-Signed By: Emilia Arias MD at 12/03/2018 6:08 PM WSN:[email or web address]
== END ==
LOC: RAD 17:26
PROVIDERS: ATTEND Family Medicine
DX: R07.89 Other chest pain (principal)
CPT/HCPCS: 71046

== ENCOUNTER 2018-12-15 20:45 | Outpatient (RCR) | payer MEDICAID ==
[2018-12-04 12:14] VITALS: BMI 18.0
[~2018-12-15 20:45] MED LIST changes: +CITA-145 PO; +CYCL10TA29 PO; +DOCU-202 PO; +PROP60CA22 PO; +TRAZ100T31 PO
--- NOTE | 2018-12-22 09:46 | Transitional Care Management ---
Assessment Visit Type: Telephone Visit Respiratory: WNL Respiratory Comment: 12/22 pt denies any SOB, has been checking oxygen levels with pulse ox at home. Has not smoked at all since being home. Integumentary: WNL Except Integumentary Comment: 12/22 chest tube sites are healing well, no redness or discharge Pain/Management: WNL Except Pain/Management Comment: 2/2 rib pain getting much better Scheduled Follow-Up with Provi: Yes (has appt with Dr Gamble on 12/26) TCM Discharge Criteria Transitional Care Comment: 12/04 I gave handouts on Chest tubes, pneumothorax and Smoking Cessation. I asked her ehat she did for activity and entertainment and she staed "clean house" hER IS ALSO A SMOKER BUT SEEMED WILLING TO QUIT HIMSELF IN ORDER TO HELP HER. We went over the side effects of smoking and the possibility to have another pneuthoras and she stated "Idon't want that"jI gave her the number for [employer] they will give her further information and ways to stop. She appeared interested. 12/05 She has been busy with visitors, and has asked me to come back twice. I will see her tomorrow. 12/10 COPD booklet review with pt. Expresses desire to qit smoking and info provided. 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 Pain with 2 chest tubes making CDB difficult. Plan dc for 12/12. 12/11 Suggested no flying or scuba diving after discharge. States will call quitline when she gets home but that the chestubes were enough of a deterant that she will not be smoking again. Knows is stillsmoking. No questions from COPD book review yesterday 12/15 there are written notes that suggest a call was done on this day by someone in this office, however it was not documented in this EMR 12/22 pt doing well, has no questions, see notes above for details. Copies to: ; MARK DODGE Dec 22, 2018 09:46
--- NOTE | 2018-12-28 11:46 | Transitional Care Management ---
Assessment Visit Type: Telephone Visit (12/15 Leidy 12/28 [place]) Cardiac: [facility] Cardiac Comment: 12/15Denies any cardiac pain but has pain in her ribs uses hydocodiene. trying not use it very much. 12/28 Denies any chest pain Respiratory: [facility] Respiratory Comment: 12/15 Some SOB if doing alot so have been doing something then resting for awhile then resume what she had been doing 12/22 pt denies any SOB, has been checking oxygen levels with pulse ox at home. Has not smoked at all since being home. 12/28 Denies any resp problems at this time. Tye removed stithes from the chest tubes were and that feels very good. GI: Nutrition: [facility] GI Comment: 12/15 denies any N/V 12/28 Back to eating normal. No problems Constipation?: No Musculoskeletal, Exercise: [facility] Musculoskeletal, Excercise Com: 12/15 working around house. Had not been out since returning home 12/28 Mostly around the house as it has been to cold outside Integumentary: WN Except Integumentary Comment: 12/15 chest tube site healing. still having some discofort a these sites. 12/22 chest tube sites are healing well, no redness or discharge 12/28 stitches removed Pain/Management: [facility] Except Pain/Management Comment: 12/22 rib pain getting much better Scheduled Follow-Up with Provi: Yes (has appt with Dr Gamble on 12/26 12/28 Dr Gamble told her she didn't need to return unless she started to have symptoms.) TCM Discharge Criteria Medication Knowledge: 12/15 went over meds Red/Yellow Flags: 12/15 discussed the yellow and red flags for pneu and SOB 12/28 discussed the ret and yellow flags and be aware if she gets SOB or has chest pain, Transitional Care Comment: 12/04 I gave handouts on Chest tubes, pneumothorax and Smoking Cessation. I asked her ehat she did for activity and entertainment and she staed "clean house" hER IS ALSO A SMOKER BUT SEEMED WILLING TO QUIT HIMSELF IN ORDER TO HELP HER. We went over the side effects of smoking and the possibility to have another pneuthoras and she stated "Idon't want that I gave her the number for [employer] they will give her further information and ways to stop. She appeared interested. 12/05 She has been busy with visitors, and has asked me to come back twice. I will see her tomorrow. 12/10 COPD booklet review with pt. Expresses desire to qit smoking and info provided. 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 Pain with 2 chest tubes making CDB difficult. Plan dc for 12/12. 12/15 discussed her smoking and she states she has not smoked since she was dc'd. Trying very hard not to. 12/11 Suggested no flying or scuba diving after discharge. States will call quitline when she gets home but that the chestubes were enough of a deterant that she will not be smoking again. Knows is stillsmoking. No questions from COPD book review yesterday 12/15 there are written notes that suggest a call was done on this day by someone in this office, however it was not documented in this EMR 12/22 pt doing well, has no questions, see notes above for details. 12/28 States doing well and remains ssmoke free and very happy about it. Her is working on it. Will call one more time Copies to: HOLLY PALM PA-C ; SUSANA GODWIN Dec 28, 2018 11:46
--- NOTE | 2019-01-05 12:54 | Transitional Care Management ---
Assessment Visit Type: Telephone Visit Cardiac: [facility] Cardiac Comment: 12/15Denies any cardiac pain but has pain in her ribs uses hydocodiene. trying not use it very much. 12/28 Denies any chest pain Respiratory: [facility] Respiratory Comment: 12/15 Some SOB if doing alot so have been doing something then resting for awhile then resume what she had been doing 12/22 pt denies any SOB, has been checking oxygen levels with pulse ox at home. Has not smoked at all since being home. 12/28 Denies any resp problems at this time. Tye removed stithes from the chest tubes were and that feels very good. GI: Nutrition: [facility] GI Comment: 12/15 denies any N/V 12/28 Back to eating normal. No problems Constipation?: No Musculoskeletal, Exercise: [facility] Musculoskeletal, Excercise Com: 12/15 working around house. Had not been out since returning home 12/28 Mostly around the house as it has been to cold outside Integumentary: WN Except Integumentary Comment: 12/15 chest tube site healing. still having some discofort a these sites. 12/22 chest tube sites are healing well, no redness or discharge 12/28 stitches removed Pain/Management: [facility] Except Pain/Management Comment: 12/22 rib pain getting much better Scheduled Follow-Up with Provi: Yes (has appt with Dr Gamble on 12/26 12/28 Dr Gamble told her she didn't need to return unless she started to have symptoms.) TCM Discharge Criteria Medication Knowledge: 12/15 went over meds Red/Yellow Flags: 12/15 discussed the yellow and red flags for pneu and SOB 12/28 discussed the ret and yellow flags and be aware if she gets SOB or has chest pain, Transitional Care Comment: 12/04 I gave handouts on Chest tubes, pneumothorax and Smoking Cessation. I asked her ehat she did for activity and entertainment and she staed "clean house" hER IS ALSO A SMOKER BUT SEEMED WILLING TO QUIT HIMSELF IN ORDER TO HELP HER. We went over the side effects of smoking and the possibility to have another pneuthoras and she stated "Idon't want that I gave her the number for [employer] they will give her further information and ways to stop. She appeared interested. 1/16 She has been busy with visitors, and has asked me to come back twice. I will see her tomorrow. 12/10 COPD booklet review with pt. Expresses desire to qit smoking and info provided. 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 Pain with 2 chest tubes making CDB difficult. Plan dc for 12/12. 12/15 discussed her smoking and she states she has not smoked since she was dc'd. Trying very hard not to. 12/11 Suggested no flying or scuba diving after discharge. States will call quitline when she gets home but that the chestubes were enough of a deterant that she will not be smoking again. Knows is stillsmoking. No questions from COPD book review yesterday 12/15 there are written notes that suggest a call was done on this day by someone in this office, however it was not documented in this EMR 12/22 pt doing well, has no questions, see notes above for details. 12/28 States doing well and remains ssmoke free and very happy about it. Her is working on it. Will call one more time 01/05 pt continues to do well. denies any problems or concerns. has not smoked at all. denies questions. will discharge from program. MARK DOGDE Jan 05, 2019 12:54
== END 2019-01-07 06:48 | disposition home or self-care (01) ==
LOC: TCM 20:45
PROVIDERS: ATTEND Nurse Practitioner
DX: Z02.9 Encounter for administrative examinations, unspecified (principal)

== ENCOUNTER → 2018-12-26 | Outpatient (CLI) | payer MEDICAID ==
[2018-12-04 12:14] VITALS: BMI 18.0
--- NOTE | 2018-12-26 12:49 | RADIOLOGY IMAGING REPORT ---
FACILITY: [facility] PATIENT NAME: Leidy Momin : 1975 MR: [id number] V: [id number] EXAM DATE: ORDERING PHYSICIAN: YAQUELIN TAFOYA TECHNOLOGIST: Location: [facility] [place] Patient: Leidy Momin : 1975 Visit/Account:[id number] Date of Sevice: 12/26/2018 Exam type: CHEST PA LAT History: Emphysematous bleb of lung, spontaneous pneumothorax Comparison: 12/12/2018. Findings: Both lungs are hyperinflated. Some blebs at the lung apices are noted there is no appreciable pneumo thorax. No focal infiltrate or pleural effusion. Heart size is normal. The osseous structures are unremarkable. IMPRESSION: 1. Hyperinflated lungs with biapical pleural blebs. No evidence for pneumothorax. Report Dictated By: Mitchell Moore MD at 12/26/2018 12:42 PM Report E-Signed By: Mitchell Moore MD at 12/26/2018 12:45 PM WSN:[id number]
== END ==
LOC: RAD 12:08
PROVIDERS: ATTEND Surgery
DX: J43.9 Emphysema, unspecified (principal); J93.0 Spontaneous tension pneumothorax
CPT/HCPCS: 71046